=== PATIENT | male | born 1955 | race Caucasian/White ===

== ENCOUNTER → 2017-03-09 | Outpatient (CLI) | payer OTHER | LOC: FIMAGING 08:52 | PROVIDERS: ATTEND Internal Medicine Cardiovascular Disease | DX: I82.432 Acute embolism and thrombosis of left popliteal vein (principal); I82.4Z2 Acute embolism and thrombosis of unspecified deep veins of left distal lower extremity ==

== ENCOUNTER 2017-08-06 16:36 | Inpatient (IN) | payer OTHER ==
[2017-08-06] MEDS ORDERED: NS 1,000 ML IV ONE ×2 (17:06→17:27)
--- NOTE | 2017-08-06 17:06 | EDPHY ---
H & P Stated Complaint: fever, body aches, cough HPI/ROS: HPI CHIEF COMPLAINT: Fever, cough, sinus congestion, muscle cramps HISTORY OF PRESENT ILLNESS: This patient is a 62-year-old male, he has multiple myeloma undergoing treatment by Dr. Shelton, he presents emergency room with fever 102.8 T-max at home on Sunday. He states on Sunday started feeling bad. Fatigued. Wanted to sleep. Muscle aches and joint pain. Endorses sinus congestion and cough that is nonproductive. He denies chest pain , significant shortness of breath or abdominal pain. His main complaint is muscle aches and joint pain generalized fatigue. Upon arrival to the emergency room is noted to be febrile. Appears to be dehydrated. Patient additionally reports chills rigors over the weekend. Past Medical History: Multiple myeloma, community-acquired pneumonia, atrial flutter, Xarelto, C diff Past Surgical History: No recent surgery, remote history of bilateral knee replacement Social History: Denies daily use drugs alcohol tobacco products. Family History: Noncontributory ROS REVIEW OF SYSTEMS: A comprehensive 10 point review of systems is otherwise negative aside from elements mentioned in the history of present illness. Exam Constitutional appears nontoxic, triage nursing summary reviewed, vital signs reviewed, awake/alert. Eyes normal conjunctivae and sclera, EOMI, PERRLA. HENT normal inspection, atraumatic, dry mucous membranes, no epistaxis, neck supple/ no meningismus, no raccoon eyes. Respiratory clear to auscultation bilaterally, normal breath sounds, no respiratory distress, no wheezing. Cardiovascular rate normal, regular rhythm, no murmur, no edema, distal pulses normal. Gastrointestinal soft, non-tender, no rebound, no guarding, normal bowel sounds, no distension, no pulsatile mass. Genitourinary no CVA tenderness. Musculoskeletal no midline vertebral tenderness, full range of motion, no calf swelling, no tenderness of extremities, no meningismus, good pulses, neurovascularly intact. Skin pink, warm, & dry, no rash, skin atraumatic. Neurologic awake, alert and oriented x 3, AAOx3, moves all 4 extremities equally, motor intact, sensory intact, CN II-XII intact, normal cerebellar, normal vision, normal speech. Psychiatric normal mood/affect. Heme/Lymph/Immune no lymphadenopathy. Differential Diagnosis: Includes but is not limited to in a particular order bacteremia, sepsis, UTI, pneumonia, viral syndrome, influenza, sinusitis Medical Decision Making: Plan for this patient IV establishment, full monitor, blood cultures, lactic acid, IV fluid bolus, rule out sepsis bacteremia. Chest x-ray for pneumonia. Re-evaluation: ED x-ray chest two view: This shows a left lower lobe consolidation. Concerning for pneumonia. 1756: This patient has history of multiple myeloma undergoing treatment. He is immunosuppressed. Presents with a fever, muscle aches, joint pain generalized weakness. His workup shows he has a left lower lobe pneumonia. Additionally he is hypokalemic. Will be admitted to the hospitalist service for fever pneumonia sepsis hypokalemia. 1758: Broad-spectrum antibiotics been given. The IV vancomycin IV Zosyn. Reason for these antibiotics pneumonia in an immunosuppressed patient chemotherapy. 1813: Spoke with Dr. Mayorga: He agrees to admit this patient. Reason for admission fever, pneumonia, sepsis, immunosuppressed. Source: Patient - Personal History Current Tetanus/Diphtheria Vaccine: Unsure Current Tetanus Diphtheria and Acellular Pertussis (TDAP): Unsure - Medical/Surgical History Hx Asthma: No Hx Chronic Respiratory Disease: No Hx Diabetes: No Hx Cardiac Disease: Yes Hx Renal Disease: Yes Hx Cirrhosis: No Hx Alcoholism: No Hx HIV/AIDS: No Hx Splenectomy or Spleen Trauma: No Other PMH: BILAT KNEE REPLACEMENT, HTN, GERD, PERIPHERAL VASCULAR DISEASE, walking pneumonia. 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 multiple myeloma, aflutter/afib w/ CV 02/2015, kidney stone, chronic back pain, FERNANDO - Social History Smoking Status: Never smoked Constitutional: Initial Vital Signs Temperature (C) 39.2 C H 08/06/17 16:55 Heart Rate 82 08/06/17 16:55 Respiratory Rate 20 08/06/17 16:55 Blood Pressure 139/80 H 08/06/17 16:55 O2 Sat (%) 92 08/06/17 16:55 O2 Delivery Mode Room Air O2 (L/minute) 2 Allergies/Adverse Reactions: No Known Allergies Allergy (Verified 02/14/15 09:51) Home Medications: Medication Instructions Recorded Potassium Cl [Klor-Con 20 meq (*)] 20 meq PO BID 05/19/16 Albuterol [Ventolin Hfa Inhaler] 2 puffs IH QID PRN #1 mdi 09/22/16 levOFLOXACIN [Levaquin] 500 mg PO DAILY #10 tab 09/22/16 Acyclovir 08/06/17 Revlimid 08/06/17 Xarelto 08/06/17 Medical Decision Making - Diagnostics Imaging Results: Imaging Impressions Chest X-Ray 08/06/17 17:07 Impression: Suspect left basilar pneumonia. - Data Points Laboratory Results: Laboratory Results 08/06/17 17:18 08/06/17 17:18 08/06/17 08/06/17 08/06/17 17:18 17:18 17:18 WBC 7.48 10^3/uL 10^3/uL (3.80-9.50) RBC 4.47 10^6/uL 10^6/uL (4.40-6.38) Hgb 14.2 g/dL g/dL (13.7-17.5) Hct 41.6 % % (40.0-51.0) MCV 93.1 fL fL (81.5-99.8) MCH 31.8 pg pg (27.9-34.1) MCHC 34.1 g/dL g/dL (32.4-36.7) RDW 14.7 % % (11.5-15.2) Plt Count 142 10^3/uL L 10^3/uL (150-400) MPV 9.5 fL fL (8.7-11.7) Neut % (Auto) 86.3 % H % (39.3-74.2) Lymph % (Auto) 8.0 % L % (15.0-45.0) [place] % (Auto) 4.0 % L % (4.5-13.0) Eos % (Auto) 0.5 % L % (0.6-7.6) Baso % (Auto) 0.4 % % (0.3-1.7) Nucleat RBC Rel Count 0.0 % % (0.0-0.2) Absolute Neuts (auto) 6.45 10^3/uL 10^3/uL (1.70-6.50) Absolute Lymphs (auto) 0.60 10^3/uL L 10^3/uL (1.00-3.00) Absolute Monos (auto) 0.30 10^3/uL 10^3/uL (0.30-0.80) Absolute Eos (auto) 0.04 10^3/uL 10^3/uL (0.03-0.40) Absolute Basos (auto) 0.03 10^3/uL 10^3/uL (0.02-0.10) Absolute Nucleated RBC 0.00 10^3/uL 10^3/uL (0-0.01) Immature Gran % 0.8 % % (0.0-1.1) Immature Gran # 0.06 10^3/uL 10^3/uL (0.00-0.10) PT 16.2 SEC H SEC (12.0-15.0) INR 1.30 H (0.83-1.16) APTT 30.2 SEC SEC (23.0-38.0) VBG Lactic Acid Sodium 137 mEq/L mEq/L (134-144) Potassium 2.8 mEq/L L mEq/L (3.5-5.2) Chloride 105 mEq/L mEq/L (97-110) Carbon Dioxide 20 mEq/l L mEq/l (22-31) Anion Gap 12 mEq/L mEq/L (8-16) BUN 14 mg/dL mg/dL (7-23) Creatinine 1.1 mg/dL mg/dL (0.7-1.3) Estimated GFR > 60 Glucose 91 mg/dL mg/dL (70-100) Calcium 9.7 mg/dL mg/dL (8.5-10.4) Total Bilirubin 1.9 mg/dL H mg/dL (0.1-1.4) Conjugated Bilirubin 0.4 mg/dL mg/dL (0.0-0.5) Unconjugated Bilirubin 1.5 mg/dL H mg/dL (0.0-1.1) AST 26 IU/L IU/L (17-59) ALT 40 IU/L IU/L (21-72) Alkaline Phosphatase 60 IU/L IU/L (38-126) Total Protein 6.9 g/dL g/dL (6.3-8.2) Albumin 3.9 g/dL g/dL (3.5-5.0) Influenza A & B (PCR) 08/06/17 08/06/17 17:18 17:00 WBC RBC Hgb Hct MCV MCH MCHC RDW Plt Count MPV Neut % (Auto) Lymph % (Auto) [place] % (Auto) Eos % (Auto) Baso % (Auto) Nucleat RBC Rel Count Absolute Neuts (auto) Absolute Lymphs (auto) Absolute Monos (auto) Absolute Eos (auto) Absolute Basos (auto) Absolute Nucleated RBC Immature Gran % Immature Gran # PT INR APTT VBG Lactic Acid 1.4 mmol/L mmol/L (0.7-2.1) Sodium Potassium Chloride Carbon Dioxide Anion Gap BUN Creatinine Estimated GFR Glucose Calcium Total Bilirubin Conjugated Bilirubin Unconjugated Bilirubin AST ALT Alkaline Phosphatase Total Protein Albumin Influenza A & B (PCR) Pending Medications Given: Discontinued Medications Acetaminophen (Tylenol) 1,000 mg PO EDNOW ONE Stop: 08/06/17 17:14 Last Admin: 08/06/17 17:25 Dose: 1,000 mg Sodium Chloride (Ns) 1,000 mls @ 0 mls/hr IV EDNOW ONE; Wide Open PRN Reason: Protocol Stop: 08/06/17 17:07 Last Admin: 08/06/17 17:25 Dose: 1,000 mls Sodium Chloride (Ns) 1,000 mls @ 0 mls/hr IV ONCE ONE PRN Reason: Wide Open Stop: 08/06/17 17:28 Last Admin: 08/06/17 17:45 Dose: 1,000 mls Departure - Departure Disposition: [facility] Inpatient Acute Clinical Impression: Hypokalemia Pneumonia Qualifiers: Pneumonia type: due to unspecified organism Laterality: left Lung location: lower lobe of lung Qualified Code(s): J18.1 - Lobar pneumonia, unspecified organism Fever Qualifiers: Fever type: unspecified Qualified Code(s): R50.9 - Fever, unspecified Condition: Fair Referrals: Eran Shelton MD [Primary Care Provider] - As per Instructions
[2017-08-06] MEDS ORDERED: ACETAMINOPHEN 500 MG TAB PO ONE (17:13)
[2017-08-06 17:42] LABS: % IMMATURE GRANULYOCYTES 0.8 % (0.0-1.1); ABSOLUTE IMMATURE GRANULOCYTES 0.06 10^3/uL (0.00-0.10); ADD DIFF? NO; ADD MORPH? NO; ADD SCAN? NO; ATYPICAL LYMPHOCYTE FLAG 60 (0-99); FRAGMENT RBC FLAG 0 (0-99); HEMATOCRIT 41.6 % (40.0-51.0); HEMOGLOBIN 14.2 g/dL (13.7-17.5); LEFT SHIFT FLG 10 (0-99); LIPEMIA HEMOLYSIS FLAG 90 (0-99); MEAN CELL HEMOGLOBIN 31.8 pg (27.9-34.1); MEAN CELL HEMOGLOBIN CONCENTR. 34.1 g/dL (32.4-36.7); MEAN CELL VOLUME 93.1 fL (81.5-99.8); MEAN PLATELET VOLUME 9.5 fL (8.7-11.7); PLATELET CLUMPS FLAG 0 (0-99); PLATELET COUNT 142 10^3/uL (150-400); RED BLOOD CELL COUNT 4.47 10^6/uL (4.40-6.38); RED CELL DISTRIBUTION WIDTH 14.7 % (11.5-15.2)
[2017-08-06 17:44] LABS: ALANINE AMINOTRANSFERASE 40 IU/L (21-72); ALBUMIN 3.9 g/dL (3.5-5.0); ALKALINE PHOSPHATASE 60 IU/L (38-126); ANION GAP 12 mEq/L (8-16); ASPARTATE AMINOTRANSFERASE 26 IU/L (17-59); BILIRUBIN,TOTAL 1.9 mg/dL (0.1-1.4); BILIRUBIN-CONJUGATED 0.4 mg/dL (0.0-0.5); BILIRUBIN-UNCONJUGATED 1.5 mg/dL (0.0-1.1); CALCIUM 9.7 mg/dL (8.5-10.4); CARBON DIOXIDE 20 mEq/l (22-31); CHLORIDE 105 mEq/L (97-110); CREATININE 1.1 mg/dL (0.7-1.3); GLOMERULAR FILTRATION RATE > 60; GLUCOSE 91 mg/dL (70-100); POTASSIUM 2.8 mEq/L (3.5-5.2); SODIUM 137 mEq/L (134-144); TOTAL PROTEIN 6.9 g/dL (6.3-8.2)
[2017-08-06 17:50] LABS: INR 1.3 (0.83-1.16); PROTIME(PATIENT) 16.2 SEC (12.0-15.0)
[2017-08-06 17:51] LABS: APTT 30.2 SEC (23.0-38.0)
[2017-08-06] MEDS ORDERED: POTASSIUM Cl (KCl) 100 ML IV ONE (17:56)
[2017-08-06] MEDS ORDERED: VANCOMYCIN HCL/NORMAL SALINE 250 ML IV ONE (17:56)
[2017-08-06] MEDS ORDERED: PIPERACILLIN/TAZO 4.5 GM/DEX 100 ML IV ONE (17:56)
[2017-08-06] MEDS ORDERED: ACETAMINOPHEN 325 MG TAB PO PRN (18:16)
[2017-08-06] MEDS ORDERED: ONDANSETRON 4 MG/2 ML VIAL IVP PRN (18:16)
[2017-08-06] MEDS ORDERED: ONDANSETRON DISINTEGRATING 4 MG TAB PO PRN (18:16)
[2017-08-06] MEDS ORDERED: MAGNESIUM SULF 1 GM/DEXTROSE 100 ML IV ONE (19:22)
[2017-08-06] MEDS ORDERED: POTASSIUM CL 20 MEQ TAB PO ONE (19:22)
[2017-08-06] MEDS ORDERED: ALBUTEROL 200 PUFFS/18 GM MDI IH PRN (19:40)
[2017-08-06] MEDS ORDERED: guaiFENesin/CODEINE PHOS 10 ML UDCUP PO PRN (19:40)
--- NOTE | 2017-08-06 19:44 | PDGENHP ---
History and Physical - Chief Complaint Acute fever - History of Present Illness Primary care provider: Dr. Stephen Duncan Primary oncologist: Dr. Eran Shelton Primary slab grinder: Dr. Chuyita Traore Primary ceiling insulation blower: Dr. Guillaume Peralta HPI: 62-year-old male presenting with acute fever characterized as a temperature of a 102.8 degrees with associated rigors, myalgias, generalized weakness, generalized fatigue. Onset of symptoms 3 days prior, duration has been persistent worsening thereafter. He has also had a nonproductive cough which was most severe yesterday. He alleviated the fever with Tylenol at home, but then it recurred. He has been adherent to all of his home medications. He otherwise denies any diarrhea, nausea, dysuria. He has not recently been taking any antibiotics. He does attempt to remain physically active but has noted significant fatigue with exercise. History Information - Allergies/Home Medication List Allergies/Adverse Reactions: No Known Allergies Allergy (Verified 02/14/15 09:51) Home Medications: Potassium Cl [Klor-Con 20 meq (*)] 20 meq PO BID 05/19/16 [Last Taken 05/19/16] Acyclovir [Zovirax 400 mg (*)] 400 mg PO BID 08/06/17 [Last Taken 08/05/17 22:00 ] Midodrine HCl 2.5 mg PO TID 08/06/17 [Last Taken 08/06/17 09:00] Revlimid 08/06/17 [Last Taken Unknown] Rivaroxaban [Xarelto] 20 mg PO HS 08/06/17 [Last Taken 08/05/17 22:00] I have personally reviewed and updated: family history, medical history, social history, surgical history - Past Medical History CVA, DVT (March of 2017, right popliteal, tibial, peroneal, left popliteal) Additional medical history: Multiple Myeloma diagnosed 02/17 w/ IgG [place] disease, chronically immunosuppressed on Revlamid. Atrial flutter on Xarelto. Chronic kidney disease stage 3. Gastrointestinal bleed. Chronic pain with continuous opiate dependency. Gastroesophageal reflux disease. Obstructive sleep apnea on CPAP. Hypertension. History of C diff colitis - Surgical History Additional surgical history: Bilateral knee surgery. Thyroid goiter surgery - Family History Additional family history: No recent sick family contacts, father with myocardial infarction in his 70s, mother with breast cancer - Social History Smoking Status: Never smoked Alcohol Use: None Drug Use: None Additional social history: Right stationary bike 3 times weekly Review of Systems Review of Systems: ROS: 10pt was reviewed & negative except for what was stated in HPI & below Constitutional: Reports: chills, fever, malaise, weakness Respiratory: Reports: cough Physical Exam Physical Exam: Temp Pulse Resp BP Pulse Ox 38.6 C H 79 18 111/60 96 08/06/17 18:14 08/06/17 18:14 08/06/17 18:14 08/06/17 18:16 08/06/17 18:14 Constitutional: no apparent distress, not in pain, chronically ill appearing, obese, uncomfortable Eyes: PERRL, EOMI, scleral injection Ears, Nose, Mouth, Throat: moist mucous membranes, hearing normal, ears appear normal, no oral mucosal ulcers Cardiovascular: regular rate and rhythym, systolic murmur (1/6 at the right sternal border), No tachycardia, No edema Respiratory: other (Distant breath sounds), No expiratory wheeze, No inspiratory crackles, No bronchial breath sounds, No respiratory distress Gastrointestinal: normoactive bowel sounds, soft, non-tender abdomen, no palpable masses, distension (Obese), No guarding Skin: warm, normal color, no rashes or abrasions, no fluctuance, no induration, No mottled Neurologic: AAOx3, sensation intact bilaterally, No weakness (Motor strength 5/ 5 bilaterally), No facial droop Psychiatric: interacting appropriately, not anxious, not encephalopathic, thought process linear Lab Data & Imaging Review 08/06/17 17:18 08/06/17 17:18 WBC 7.48 10^3/uL (3.80-9.50) 08/06/17 17:18 RBC 4.47 10^6/uL (4.40-6.38) 08/06/17 17:18 Hgb 14.2 g/dL (13.7-17.5) 08/06/17 17:18 Hct 41.6 % (40.0-51.0) 08/06/17 17:18 MCV 93.1 fL (81.5-99.8) 08/06/17 17:18 MCH 31.8 pg (27.9-34.1) 08/06/17 17:18 MCHC 34.1 g/dL (32.4-36.7) 08/06/17 17:18 RDW 14.7 % (11.5-15.2) 08/06/17 17:18 Plt Count 142 10^3/uL (150-400) L 08/06/17 17:18 MPV 9.5 fL (8.7-11.7) 08/06/17 17:18 Neut % (Auto) 86.3 % (39.3-74.2) H 08/06/17 17:18 Lymph % (Auto) 8.0 % (15.0-45.0) L 08/06/17 17:18 [place] % (Auto) 4.0 % (4.5-13.0) L 08/06/17 17:18 Eos % (Auto) 0.5 % (0.6-7.6) L 08/06/17 17:18 Baso % (Auto) 0.4 % (0.3-1.7) 08/06/17 17:18 Nucleat RBC Rel Count 0.0 % (0.0-0.2) 08/06/17 17:18 Absolute Neuts (auto) 6.45 10^3/uL (1.70-6.50) 08/06/17 17:18 Absolute Lymphs (auto) 0.60 10^3/uL (1.00-3.00) L 08/06/17 17:18 Absolute Monos (auto) 0.30 10^3/uL (0.30-0.80) 08/06/17 17:18 Absolute Eos (auto) 0.04 10^3/uL (0.03-0.40) 08/06/17 17:18 Absolute Basos (auto) 0.03 10^3/uL (0.02-0.10) 08/06/17 17:18 Absolute Nucleated RBC 0.00 10^3/uL (0-0.01) 08/06/17 17:18 Immature Gran % 0.8 % (0.0-1.1) 08/06/17 17:18 Immature Gran # 0.06 10^3/uL (0.00-0.10) 08/06/17 17:18 PT 16.2 SEC (12.0-15.0) H 08/06/17 17:18 INR 1.30 (0.83-1.16) H 08/06/17 17:18 APTT 30.2 SEC (23.0-38.0) 08/06/17 17:18 VBG Lactic Acid 1.4 mmol/L (0.7-2.1) 08/06/17 17:18 Sodium 137 mEq/L (134-144) 08/06/17 17:18 Potassium 2.8 mEq/L (3.5-5.2) L 08/06/17 17:18 Chloride 105 mEq/L (97-110) 08/06/17 17:18 Carbon Dioxide 20 mEq/l (22-31) L 08/06/17 17:18 Anion Gap 12 mEq/L (8-16) 08/06/17 17:18 BUN 14 mg/dL (7-23) 08/06/17 17:18 Creatinine 1.1 mg/dL (0.7-1.3) 08/06/17 17:18 Estimated GFR > 60 08/06/17 17:18 Glucose 91 mg/dL (70-100) 08/06/17 17:18 Calcium 9.7 mg/dL (8.5-10.4) 08/06/17 17:18 Total Bilirubin 1.9 mg/dL (0.1-1.4) H 08/06/17 17:18 Conjugated Bilirubin 0.4 mg/dL (0.0-0.5) 08/06/17 17:18 Unconjugated Bilirubin 1.5 mg/dL (0.0-1.1) H 08/06/17 17:18 AST 26 IU/L (17-59) 08/06/17 17:18 ALT 40 IU/L (21-72) 08/06/17 17:18 Alkaline Phosphatase 60 IU/L (38-126) 08/06/17 17:18 Total Protein 6.9 g/dL (6.3-8.2) 08/06/17 17:18 Albumin 3.9 g/dL (3.5-5.0) 08/06/17 17:18 Influenza A & B (PCR) POSITIVE FOR FLU A (NEGATIVE) 08/06/17 17:00 Visualized and Interpreted Chest x-ray results: Yes Chest X-Ray results: other (Possible left lower lobe infiltrate) Assessment & Plan Assessment: 62-year-old male presenting with generalized weakness and fever in the setting of possible viral pneumonia, hypokalemia Plan: 1. Suspected viral pneumonia. Evidenced by possible left lower lobe infiltrate on chest x-ray, positive influenza swab PCR, infectious symptoms and cough -acute, new problem this provider, further workup indicated with CT without contrast evaluate for lobar pneumonia versus more diffuse process more suggestive of influenza -reviewed outside records including 05/21/[address] Alberto Guaman, characterizing patient's most recent hospitalization for pneumonia secondary to parainfluenza, treated on suppressive oral vancomycin given his history for C diff and concomitant use of antibiotics -treat supportively with guaifenesin and codeine, Mucinex, albuterol as needed, Tylenol -1st dose of Tamiflu tonight, continue 75 mg twice daily -discussed with Dr. Zoltan Mendiola, he reports to me that the patient has received vancomycin and Zosyn given his immunocompromised status from chronic use of Revlimid, will discontinue the Vanco and Zosyn at this time given that this process is much more likely mediated by influenza the patient has a history of C diff colitis 2. Hypokalemia. Acute, unclear whether this is secondary to poor oral intake in the setting of infection, the patient received 10 mEq of potassium in the emergency department, will continue with normal saline and 40 mEq as well as an additional oral 40 mEq now repeating serum potassium level in a.m. -give 1 g of IV magnesium, repeat level in a.m. 3. Atrial flutter. Chronic, continue on Xarelto and other home medications 4. Multiple myeloma. Chronic, continue on Revlimid once reconciled, chronically immunosuppressed 5. Chronic kidney disease stage 3. Creatinine 1.1, continue to monitor well as potassium level 6. Deep venous thrombosis. Present on admission, ultrasound from 03/09/2017 demonstrates bilateral distal lower extremity clots, currently on Xarelto Diet. Regular Prophylaxis. Risk patient, continue on Xarelto Code. Full Disposition. Anticipated discharge uncertain this time, anticipated length stay is greater than 48 hours warranting inpatient admission status for reasonable medical necessity including suspected viral pneumonia with high risk comorbid multiple myeloma and chronic immunosuppression.
[2017-08-06] MEDS: POTASSIUM Cl (KCl) 40 MEQ in NS 1,000 ML IV SCH (19:52)
[2017-08-06] MEDS: guaiFENesin 600 MG TAB.ER PO SCH (19:57)
[2017-08-06] MEDS ORDERED: RIVAROXABAN 20 MG TAB PO SCH (22:20)
[2017-08-06] MEDS ORDERED: OSELTAMIVIR PHOSPHATE 75 MG CAP PO ONE (23:15)
[2017-08-06] MEDS: ACYCLOVIR 400 MG TAB PO SCH (23:19)
[2017-08-06] MEDS: MIDODRINE HCL 5 MG TAB PO SCH (23:20)
[2017-08-07] MEDS: LOPERAMIDE HCL 2 MG CAP PO PRN ×2 (00:29→00:30)
[2017-08-07] MEDS ORDERED: PIPERACILLIN/TAZO 4.5 GM/DEX 100 ML IV SCH (00:30)
[2017-08-07 05:26] LABS: % IMMATURE GRANULYOCYTES 0.8 % (0.0-1.1); ABSOLUTE IMMATURE GRANULOCYTES 0.05 10^3/uL (0.00-0.10); ADD DIFF? NO; ADD MORPH? NO; ADD SCAN? NO; ATYPICAL LYMPHOCYTE FLAG 0 (0-99); FRAGMENT RBC FLAG 0 (0-99); HEMATOCRIT 37.8 % (40.0-51.0); HEMOGLOBIN 12.8 g/dL (13.7-17.5); LEFT SHIFT FLG 20 (0-99); LIPEMIA HEMOLYSIS FLAG 90 (0-99); MEAN CELL HEMOGLOBIN CONCENTR. 33.9 g/dL (32.4-36.7); MEAN CELL VOLUME 94.5 fL (81.5-99.8); PLATELET CLUMPS FLAG 0 (0-99); PLATELET COUNT 114 10^3/uL (150-400); RED CELL DISTRIBUTION WIDTH 14.7 % (11.5-15.2)
[2017-08-07 05:41] LABS: ALANINE AMINOTRANSFERASE 41 IU/L (21-72); ALKALINE PHOSPHATASE 47 IU/L (38-126); ANION GAP 10 mEq/L (8-16); ASPARTATE AMINOTRANSFERASE 27 IU/L (17-59); BILIRUBIN,TOTAL 1.4 mg/dL (0.1-1.4); CALCIUM 8.6 mg/dL (8.5-10.4); CARBON DIOXIDE 19 mEq/l (22-31); CHLORIDE 112 mEq/L (97-110); CREATININE 1.1 mg/dL (0.7-1.3); GLOMERULAR FILTRATION RATE > 60; GLUCOSE 82 mg/dL (70-100); MAGNESIUM 1.7 mg/dL (1.6-2.3); POTASSIUM 3.1 mEq/L (3.5-5.2); SODIUM 141 mEq/L (134-144); TOTAL PROTEIN 5.8 g/dL (6.3-8.2)
[2017-08-07] MEDS ORDERED: VANCOMYCIN 1.5 GM in D5W 250 ML IV SCH (06:00)
[2017-08-07] MEDS ORDERED: OSELTAMIVIR PHOSPHATE 75 MG CAP PO SCH (07:00)
[2017-08-07] MEDS: POTASSIUM Cl (KCl) 40 MEQ in NS 1,000 ML IV SCH (07:09)
[2017-08-07] MEDS: MIDODRINE HCL 5 MG TAB PO SCH ×2 (07:58→12:08)
[2017-08-07] MEDS: ACYCLOVIR 400 MG TAB PO SCH (09:51)
[2017-08-07] MEDS: guaiFENesin 600 MG TAB.ER PO SCH (09:51)
--- NOTE | 2017-08-07 11:51 | ASMTCASEMG ---
Living Arrangements What is your living Answers: With Spouse arrangement? Who do you live with? Type Of Residence What kind of residence do Answers: House you live in? Discharge Plan Comments Coordination Status Comments Notes: Chart reviewed, pt is a 62 y/o man admitted w/ fenver and pneumonia. Pt has a supportive ex that has been in to visit w/ him. Pt will most likely d/c independent when he is medically stable. CM available for changes. Date Signed: 08/07/2017 11:51 AM Electronically Signed By:JOI Hayes
[2017-08-07 12:51] VITALS: BP 131/77; PULSE 63; RESP 16; TEMP 98; O2SAT 95
--- NOTE | 2017-08-07 13:13 | GDS ---
[f rep st] DISCHARGE SUMMARY DISCHARGE DIAGNOSES: 1. Influenza A. 2. Hypokalemia. 3. History of atrial flutter. 4. History of multiple myeloma. 5. Chronic kidney disease, stage 3. 6. Deep vein thrombosis, on Xarelto. 7. A suspected viral pneumonia. HOSPITAL COURSE AND STAY: By problem: Influenza A: The patient presented to the hospital on 08/06/2017 with fever as well as rigors, myalg ias, generalized weakness, and fatigue. Subsequently, an influenza A and B by PCR was positive for linus [place]. He was started on Tamiflu. On hospital day #1, the patient states he feels much better. He denies any respiratory complaints. He did initially receive a dose of Zosyn and vancomycin in [facility] emergency department, which have been stopped. On day of discharge, I offered the patient further care in the hospital to ensure he is improving dg giovanni discharge home. The patient was fairly adamant about being discharged. He tells me he feels fin e and would like to be treated as an outpatient with Tamiflu. He understands that he is at risk for developing a secondary bacterial pneumonia and will seek followup if he develops persistent fevers or worsening respiratory symptoms. PHYSICAL EXAMINATION: VITAL SIGNS: On day of discharge, blood pressure 108/62, pulse of 67, respira tory rate 20, O2 sat 96% on 4 L, temperature afebrile. GENERAL: No acute distress. LUNGS: Clear. No wheezes, rales, or rhonchi. ABDOMEN: Soft. EXTREMITIES: No edema. PERTINENT LABORATORY AND STUDIES: Chest CT done on day of discharge, showed scattered tree-in-bud no dules, which are likely inflammatory versus infectious. DISCHARGE MEDICATIONS: Please refer to discharge Medication Reconciliation in [facility] for details a s well as a preliminary list. New medications on hospital discharge, Tamiflu 75 mg p.o. b.i.d. to complete 5 days of treatment. DISCHARGE INSTRUCTIONS: The patient will be discharged home. Once again, he was urged to seek medic al attention if his fevers persist or if he develops any worsening signs of pneumonia. /[id number]/MODL
--- NOTE | 2017-08-07 17:00 | ASDISCHSUM ---
Discharge Information Plan Status:Home with No Needs Medically Cleared to Leave:08/07/2017 Discharge Date:08/07/2017 01:40 PM CM D/C Disposition: ADT D/C Disposition:Home, Routine, Self-Care Projected Discharge Date:08/07/2017 12:00 AM Transportation at D/C: Discharge Delay Reason: Follow-Up Date:08/07/2017 12:00 AM Discharge Slot: Final Diagnosis: Placement Information Patient Contact Information Contact Name:SHAWNAVASILEFARIDEH Relationship: Address:[address] Home Phone: City:[place] Alternate Phone: [facility]/Zip Code:[place] [address] Email: Financial Information Financial Class:[facility] Primary Plan Desc:[employer] OPEN ACCESS Primary Plan Number:[id number] Secondary Plan Desc: Secondary Plan Number: Assessment Information [facility] Initial CM Assessment Living Arrangements What is your living Answers: With Spouse arrangement? Who do you live with? Type Of Residence What kind of residence do Answers: House you live in? Discharge Plan Comments Coordination Status Comments Notes: Chart reviewed, pt is a 62 y/o man admitted w/ fenver and pneumonia. Pt has a supportive ex that has been in to visit w/ him. Pt will most likely d/c independent when he is medically stable. CM available for changes. Date Signed: 08/07/2017 11:51 AM Electronically Signed By:JOI Hayes Intervention Information
[2017-08-07] MEDS ORDERED: POTASSIUM CL 20 MEQ TAB PO SCH (21:00)
== END 2017-08-07 13:40 | disposition home or self-care (01) | DRG 194 ==
LOC: F3E 18:50
PROVIDERS: ADMIT Internal Medicine; ATTEND Family Medicine
DX: J10.01 Influenza due to other identified influenza virus with the same other identified influenza virus pneumonia (principal); E87.6 Hypokalemia; I48.92 Unspecified atrial flutter; C90.00 Multiple myeloma not having achieved remission; Z94.84 Stem cells transplant status; Z79.899 Other long term (current) drug therapy; N18.3 Chronic kidney disease, stage 3 (moderate); I12.9 Hypertensive chronic kidney disease with stage 1 through stage 4 chronic kidney disease, or unspecified chronic kidney disease; G47.33 Obstructive sleep apnea (adult) (pediatric); K21.9 Gastro-esophageal reflux disease without esophagitis; Z86.718 Personal history of other venous thrombosis and embolism; Z86.73 Personal history of transient ischemic attack (TIA), and cerebral infarction without residual deficits; Z79.01 Long term (current) use of anticoagulants; Z96.653 Presence of artificial knee joint, bilateral
CPT/HCPCS: 97161-GP; J2543; J3370; J3475

== ENCOUNTER → 2018-02-08 | Outpatient (CLI) | payer OTHER | LOC: FIMAGING 14:09 | PROVIDERS: ATTEND Internal Medicine | DX: L72.3 Sebaceous cyst (principal) ==

== ENCOUNTER 2019-01-23 17:01 | Emergency (ER) | payer OTHER ==
--- NOTE | 2019-01-23 17:32 | EDPHY ---
H & P Stated Complaint: cough, fever, fatigue Time Seen by Provider: 01/23/19 17:32 HPI/ROS: HPI CHIEF COMPLAINT: Fatigue, worsening cough, fever 102.7 T-max at home. HISTORY OF PRESENT ILLNESS: This patient is 64-year-old male, he has a history of AFib on Xarelto, history of multiple myeloma on Revlimid, presents emergency room stating for the past 2 weeks he has had worsening progressive 2 weeks of symptoms worsening cough, shortness of breath, and today developed a fever at home of 102.7. He complains of increasing generalized weakness and fatigue. Denies chest pain. Does complain of shortness of breath. Upon arrival it is noted his O2 sat was 87%. He denies hemoptysis. Denies pleuritic pain. Past Medical History: History of multiple myeloma, history of AFib on Xarelto, obesity, history of bone marrow transplant Past Surgical History: Denies recent surgical history Social History: Denies drugs alcohol tobacco. Family History: Noncontributory ROS REVIEW OF SYSTEMS: 10 Systems were reviewed and negative with the exception of the elements mentioned in the history of present illness. Exam Constitutional triage nursing summary reviewed, vital signs reviewed, awake/ alert. 87% room air sat. Eyes normal conjunctivae and sclera, EOMI, PERRLA. HENT normal inspection, atraumatic, moist mucus membranes, no epistaxis, neck supple/ no meningismus, no raccoon eyes. Respiratory bronchitic sounding cough on exam. Faint wheezing bilaterally. Cardiovascular rate normal, regular rhythm, no murmur, no edema, distal pulses normal. Gastrointestinal soft, non-tender, no rebound, no guarding, normal bowel sounds, no distension, no pulsatile mass. Genitourinary no CVA tenderness. Musculoskeletal no midline vertebral tenderness, full range of motion, no calf swelling, no tenderness of extremities, no meningismus, good pulses, neurovascularly intact. Skin pink, warm, & dry, no rash, skin atraumatic. Neurologic awake, alert and oriented x 3, AAOx3, moves all 4 extremities equally, motor intact, sensory intact, CN II-XII intact, normal cerebellar, normal vision, normal speech. Psychiatric normal mood/affect. Heme/Lymph/Immune no lymphadenopathy. Differential Diagnosis: Differential diagnosis includes but is not limited to: Sepsis, bacteremia, pneumonia, influenza, bronchitis, viral syndrome ACS, atypical chest pain, pneumothorax, pneumonia, pulmonary embolism, aortic dissection, congestive heart failure, tumor, musculoskeletal pain, esophageal pain, GERD, peptic ulcer disease, pancreatitis Medical Decision Making: Plan for this patient IV establishment IV fluid bolus , DuoNeb breathing treatment, check lactic acid, blood cultures, basic labs, EKG , chest x-ray re-evaluate Re-evaluation: EKG interpretation by me on record in [facility] system. Impression time of EKG 1802, sinus rhythm rate of 78, incomplete right bundle-branch block. There is slight ST depression seen in V1 V2 V3 without any signs of acute ischemia. Updated patient on pneumonia on chest x-ray. IV Rocephin IV Azithro have been ordered. Plan for hospital admission Patient agrees for admission. Hospitalist service consult Dr. Rojo agrees. 2156: Patient re-evaluated he continues do very well. However still has faint wheezing, mild tachypnea. Fever down with Tylenol, ice received IV fluids his lactic acid was initially elevated 2.9. 2nd lactic acid pending. Blood cultures pending. IV Rocephin given Plan for admission for acute febrile illness, tachycardia, dehydration, COPD exacerbation, hypoxia Source: Patient - Personal History Current Tetanus/Diphtheria Vaccine: Unsure Current Tetanus Diphtheria and Acellular Pertussis (TDAP): Unsure - Medical/Surgical History Hx Asthma: No Hx Chronic Respiratory Disease: No Hx Diabetes: No Hx Cardiac Disease: Yes Hx Renal Disease: Yes Hx Cirrhosis: No Hx Alcoholism: No Hx HIV/AIDS: No Hx Splenectomy or Spleen Trauma: No Other PMH: BILAT KNEE REPLACEMENT, HTN, GERD, PERIPHERAL VASCULAR DISEASE, walking pneumonia. 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 multiple myeloma, aflutter/afib w/ CV 02/2015, kidney stone, chronic back pain, FERNANDO - Social History Smoking Status: Never smoked Constitutional: Initial Vital Signs Temperature (C) 37.4 C 01/23/19 17:04 Heart Rate 79 01/23/19 17:04 Respiratory Rate 19 01/23/19 17:04 Blood Pressure 130/58 H 01/23/19 17:04 O2 Sat (%) 93 01/23/19 17:04 O2 Delivery Mode Room Air O2 (L/minute) 2 Allergies/Adverse Reactions: No Known Allergies Allergy (Verified 02/14/15 09:51) Home Medications: Medication Instructions Recorded Potassium Cl [Klor-Con 20 meq (*)] 20 meq PO HS 05/19/16 Revlimid 10 mg PO HS 08/06/17 Rivaroxaban [Xarelto] 20 mg PO HS 08/06/17 Acyclovir [Zovirax 400 mg (*)] 400 mg PO BID 01/23/19 Amoxicillin/Clavulanate Pot 875 mg PO BID #14 tab 01/24/19 [Augmentin 875 MG TAB (*)] Azithromycin 500 mg PO DAILY #5 tablet 01/24/19 Benzonatate [Tessalon Pearles] 200 mg PO TID PRN #60 cap 01/24/19 Medical Decision Making - Data Points Laboratory Results: Laboratory Results 01/23/19 17:40 01/23/19 17:40 Medications Given: Acetaminophen (Tylenol) 650 mg PO Q4HRS PRN PRN Reason: Pain, Mild/Fever, Can Take PO Stop: 07/22/19 20:55 Last Admin: 01/23/19 23:06 Dose: 650 mg Acyclovir (Acyclovir) 400 mg PO BID [facility] Stop: 02/22/19 22:44 Last Admin: 01/24/19 09:21 Dose: 400 mg Rivaroxaban (Xarelto) 20 mg PO [facility] Stop: 07/22/19 20:59 Last Admin: 01/23/19 22:44 Dose: 20 mg Discontinued Medications Albuterol/Ipratropium (Duoneb) 3 ml IH EDNOW ONE Stop: 01/23/19 17:39 Last Admin: 01/23/19 17:55 Dose: 3 ml Sodium Chloride (Ns) 1,000 mls @ 0 mls/hr IV EDNOW ONE; Wide Open PRN Reason: Protocol Stop: 01/23/19 17:38 Last Admin: 01/23/19 17:55 Dose: 1,000 mls Azithromycin 500 mg/ Sodium (Chloride) 255 mls @ 255 mls/hr IV EDNOW ONE PRN Reason: Protocol Stop: 01/23/19 19:31 Last Admin: 01/23/19 19:33 Dose: 255 mls Ceftriaxone Sodium/Dextrose (Rocephin 1 Gm (Premix)) 50 mls @ 100 mls/hr IV EDNOW ONE PRN Reason: Protocol Stop: 01/23/19 19:01 Last Admin: 01/23/19 18:52 Dose: 50 mls Sodium Chloride (Ns) 1,000 mls @ 100 mls/hr IV CONT [facility] Stop: 07/22/19 20:59 Last Admin: 01/23/19 23:10 Dose: 1,000 mls Loperamide HCl ( Imodium) 2 mg PO EDNOW ONE Stop: 01/23/19 20:47 Last Admin: 01/23/19 20:49 Dose: 2 mg Miscellaneous Medication (Revlimid) 10 mg PO HS [facility] Stop: 07/22/19 20:59 Last Admin: 01/23/19 22:45 Dose: 10 mg Point of Care Test Results: Chemistry 01/23/19 17:49 POC Troponin I 0.03 ng/mL ng/mL (0.00-0.08) Departure - Departure Disposition: [facility] Acute Clinical Impression: Hypoxia, COPD exacerbation Condition: Fair
[2019-01-23] MEDS ORDERED: NS 1,000 ML IV ONE (17:37)
[2019-01-23] MEDS ORDERED: IPRATROPIUM/ALBUTEROL 3 ML DEYVIAL IH ONE (17:38)
[2019-01-23 17:58] LABS: PLATELET COUNT 178 10^3/uL (150-400)
[2019-01-23] MEDS ORDERED: AZITHROMYCIN IV 500 MG in NS 250 ML IV ONE (18:32)
[2019-01-23] MEDS ORDERED: LOPERAMIDE HCL 2 MG CAP PO ONE (20:46)
[2019-01-23] MEDS ORDERED: ACETAMINOPHEN 325 MG TAB PO PRN (20:56)
[2019-01-23] MEDS ORDERED: ONDANSETRON 4 MG/2 ML VIAL IVP PRN (20:56)
[2019-01-23] MEDS ORDERED: ONDANSETRON DISINTEGRATING 4 MG TAB PO PRN (20:56)
[2019-01-23] MEDS ORDERED: oxyCODONE IR 5 MG TAB PO PRN (20:56)
[2019-01-23] MEDS ORDERED: NS 1,000 ML IV SCH (21:00)
[2019-01-23] MEDS ORDERED: REVLIMID 10 MG PO SCH (21:00)
[2019-01-23] MEDS ORDERED: RIVAROXABAN 20 MG TAB PO SCH (21:00)
[2019-01-23] MEDS ORDERED: BENZONATATE 100 MG CAP PO PRN (21:48)
--- NOTE | 2019-01-23 21:50 | PDGENHP ---
History and Physical - Chief Complaint fever, cough - History of Present Illness 64yo M with multiple myeloma on revlimid presents with 2 weeks of worsening productive cough and shortness of breath. Developed fever to 102 this morning to decided to come to the ED. Sputum has been greenish yellow. Thinks he got sick from his granddaughter. No recent antibiotics. Per his report, his myeloma has been stable. In the ED, a chest x-ray shows right middle and lower lobe opacities. He was also febrile to 38.7. Blood cultures were drawn and he was started on IV ceftriaxone and azithromycin. He is being admitted for further care. Case discussed with ED physician Zoltan Mendiola. History Information - Allergies/Home Medication List Allergies/Adverse Reactions: No Known Allergies Allergy (Verified 02/14/15 09:51) Home Medications: Potassium Cl [Klor-Con 20 meq (*)] 20 meq PO HS 05/19/16 [Last Taken 01/22/19] Revlimid 10 mg PO HS 08/06/17 [Last Taken 01/22/19] Rivaroxaban [Xarelto] 20 mg PO HS 08/06/17 [Last Taken 01/22/19] Acyclovir [Zovirax 400 mg (*)] 400 mg PO BID 01/23/19 [Last Taken 01/23/19] I have personally reviewed and updated: family history, medical history, social history, surgical history - Past Medical History CVA, DVT (March of 2017, right popliteal, tibial, peroneal, left popliteal) Additional medical history: [place] chain IgG multiple myeloma (diagnosed 02/2015) with stem cell transplant in 2016, atrial flutter s/p DCCV, DVT, CKD, GI bleed, GERD, chronic pain now off narcotics, FERNANDO no longer on CPAP, HTN, remote C diff colitis, CVA with no residual deficits, diastolic dysfunction, goiter - Surgical History Additional surgical history: knee surgery, thyroid surgery - Family History Positive for: non-pertinent - Social History Smoking Status: Never smoked Alcohol Use: Rarely Drug Use: None Additional social history: Lives with Review of Systems Review of Systems: ROS: 10pt was reviewed & negative except for what was stated in HPI & below Physical Exam Physical Exam: Temp Pulse Resp BP Pulse Ox 37.4 C 78 16 121/51 H 97 01/23/19 17:04 01/23/19 18:52 01/23/19 18:52 01/23/19 18:52 01/23/19 18:52 O2 (L/minute) 3 Constitutional: appears nourished, uncomfortable Eyes: PERRL, anicteric sclera Ears, Nose, Mouth, Throat: no oral mucosal ulcers, dry mucous membranes Cardiovascular: regular rate and rhythym, no murmur, rub, or gallop, No edema Respiratory: reduced air movement, respiratory distress, rhonchi, No expiratory wheeze Gastrointestinal: normoactive bowel sounds, soft, non-tender abdomen, no palpable masses Genitourinary: no bladder fullness, no bladder tenderness Skin: warm, normal color, no rashes or abrasions, no fluctuance, no induration, No mottled Musculoskeletal: full muscle strength Neurologic: AAOx3 Psychiatric: interacting appropriately Lab Data & Imaging Review 01/23/19 17:40 01/23/19 17:40 WBC 6.10 10^3/uL (3.80-9.50) 01/23/19 17:40 RBC 4.54 10^6/uL (4.40-6.38) 01/23/19 17:40 Hgb 14.0 g/dL (13.7-17.5) 01/23/19 17:40 Hct 43.9 % (40.0-51.0) 01/23/19 17:40 MCV 96.7 fL (81.5-99.8) 01/23/19 17:40 MCH 30.8 pg (27.9-34.1) 01/23/19 17:40 MCHC 31.9 g/dL (32.4-36.7) L 01/23/19 17:40 RDW 14.6 % (11.5-15.2) 01/23/19 17:40 Plt Count 178 10^3/uL (150-400) 01/23/19 17:40 MPV 9.1 fL (8.7-11.7) 01/23/19 17:40 Neut % (Auto) 70.8 % (39.3-74.2) 01/23/19 17:40 Lymph % (Auto) 14.6 % (15.0-45.0) L 01/23/19 17:40 [place] % (Auto) 12.5 % (4.5-13.0) 01/23/19 17:40 Eos % (Auto) 1.3 % (0.6-7.6) 01/23/19 17:40 Baso % (Auto) 0.3 % (0.3-1.7) 01/23/19 17:40 Nucleat RBC Rel Count 0.0 % (0.0-0.2) 01/23/19 17:40 Absolute Neuts (auto) 4.32 10^3/uL (1.70-6.50) 01/23/19 17:40 Absolute Lymphs (auto) 0.89 10^3/uL (1.00-3.00) L 01/23/19 17:40 Absolute Monos (auto) 0.76 10^3/uL (0.30-0.80) 01/23/19 17:40 Absolute Eos (auto) 0.08 10^3/uL (0.03-0.40) 01/23/19 17:40 Absolute Basos (auto) 0.02 10^3/uL (0.02-0.10) 01/23/19 17:40 Absolute Nucleated RBC 0.00 10^3/uL (0-0.01) 01/23/19 17:40 Immature Gran % 0.5 % (0.0-1.1) 01/23/19 17:40 Immature Gran # 0.03 10^3/uL (0.00-0.10) 01/23/19 17:40 VBG Lactic Acid 1.7 mmol/L (0.7-2.1) 01/23/19 17:40 Sodium 135 mEq/L (135-145) 01/23/19 17:40 Potassium 3.6 mEq/L (3.5-5.2) 01/23/19 17:40 Chloride 102 mEq/L (97-110) 01/23/19 17:40 Carbon Dioxide 24 mEq/l (22-31) 01/23/19 17:40 Anion Gap 9 mEq/L (6-14) 01/23/19 17:40 BUN 15 mg/dL (7-23) 01/23/19 17:40 Creatinine 1.0 mg/dL (0.7-1.3) 01/23/19 17:40 Estimated GFR > 60 01/23/19 17:40 Glucose 99 mg/dL (70-100) 01/23/19 17:40 Calcium 9.2 mg/dL (8.5-10.4) 01/23/19 17:40 POC Troponin I 0.03 ng/mL (0.00-0.08) 01/23/19 17:49 NT-Pro-B Natriuret Pep 454 pg/mL (0-125) H 01/23/19 17:40 Nasal Influenza A PCR NEGATIVE FOR FLU A (NEGATIVE) 01/23/19 18:00 Nasal Influenza B PCR NEGATIVE FOR FLU B (NEGATIVE) 01/23/19 18:00 Interpretation: CXR per HPI EKG additional interpertation: ECG: NSR, incomplete RBBB, normal axis, inferior q waves (old), no acute ischemia or injury (interp by me) Assessment & Plan Assessment: 64yo M with multiple myeloma on revlimid presents with 2 weeks of worsening productive cough and shortness of breath found to be hypoxemic with pneumonia. Plan: #Community acquired pneumonia: Involving RML and RLL. Continue ceftriaxone and azithromycin. Follow sputum and blood cultures #Acute hypoxemic respiratory failure: 2/2 above. Wean O2 as able. #Fever: Not meeting sepsis criteria. Monitor fever curve. #Multiple myeloma: Followed by Dr Shelton. S/p stem cell transplant in 2016. Continue revlimid and xarelto. #Chronic diastolic CHF: CXR looks a little wet. BNP not very elevated but he is obese. Will hold on additional fluids for now. #H/o DVT: Anticoagulation as above. Code: full Diet: regular Dispo: Admit under observation
[2019-01-23] MEDS: ACYCLOVIR 400 MG TAB PO SCH (22:44)
[2019-01-24 06:22] LABS: PLATELET COUNT 158 10^3/uL (150-400)
[2019-01-24] MEDS ORDERED: ENOXAPARIN 40 MG/0.4 ML SYR SC SCH (09:00)
[2019-01-24] MEDS: ACYCLOVIR 400 MG TAB PO SCH (09:21)
--- NOTE | 2019-01-24 10:03 | HOSPPROG ---
Hospitalist Progress Note Assessment/Plan: 64 yo M w MM here w CAP AHRF- improved cap: augmentin/azithro dispo: home warning signs given see dc summary Subjective: feels well. wishes to go home Objective: Vital Signs Temp Pulse Resp BP Pulse Ox 37.1 C 66 20 95/54 L 94 01/24/19 06:53 01/24/19 06:53 01/24/19 06:53 01/24/19 06:53 01/24/19 06:53 Laboratory Results 01/24/19 06:00 01/24/19 06:00 - Physical Exam Constitutional: no apparent distress, appears nourished Eyes: PERRL, anicteric sclera Ears, Nose, Mouth, Throat: moist mucous membranes, hearing normal Cardiovascular: regular rate and rhythym, no murmur, rub, or gallop Respiratory: other (crackles RUL, RLL) Gastrointestinal: normoactive bowel sounds, soft, non-tender abdomen Genitourinary: No myers in urethra Skin: warm, normal color Musculoskeletal: full muscle strength Neurologic: AAOx3 ICD10 Worksheet Patient Problems: Problems Problem Status Onset COPD exacerbation Acute Hypoxia Acute Pneumonia Acute Acute respiratory failure Acute C. difficile diarrhea Acute 04/05/16 Dehydration Acute Fever Acute Hypokalemia Acute Hypotension Acute Sepsis Acute
--- NOTE | 2019-01-24 10:52 | GDS ---
[f rep st] DISCHARGE SUMMARY DISCHARGE DIAGNOSES: 1. Community-acquired pneumonia. 2. History of multiple myeloma, deep venous thrombosis, stroke. Please see admission history and physical by Dr. Charli Rojo. The patient presented with product veronica cough. Chest x-ray showed right upper lobe and right lower lobe infiltrate. They were relativel y mild to not have sepsis. He had an oxygen requirement, was actually breathing through his mouth an d when ambulated on room air he was 94%. I transitioned to Augmentin and Zithromax. He has tolerate d this well in the past. He is discharged home. He is also provided a prescription for Tessalon Per chan. ADDENDUM: He and his were given instructions to follow up with worsening fever, chills, cough, confusion. /[id number]/MODL
[2019-01-24 11:12] VITALS: BP 110/73
[2019-01-24] MEDS ORDERED: AZITHROMYCIN IV 500 MG in NS 250 ML IV SCH (19:30)
[2019-01-24] MEDS ORDERED: REVLIMID 10 MG PO SCH (21:00)
--- NOTE | 2019-01-25 07:55 | CPEKG ---
Test Reason : OPEN Blood Pressure : / mmHG Vent. Rate : 078 BPM Atrial Rate : 078 BPM P-R Int : 172 ms QRS Dur : 116 ms QT Int : 425 ms P-R-T Axes : 054 025 038 degrees QTc Int : 485 ms Sinus rhythm Incomplete right bundle branch block Inferior infarct, old Confirmed by Zoltan Mendiola ([id number]) on 01/25/2019 7:55:09 AM Referred By: Zoltan Mendiola Confirmed By:Zoltan Mendiola
== END 2019-01-24 11:20 | disposition still patient (30) ==
LOC: UNDOADMOB 18:48
DX: R09.02 Hypoxemia (principal); J44.1 Chronic obstructive pulmonary disease with (acute) exacerbation; I48.91 Unspecified atrial fibrillation; E86.9 Volume depletion, unspecified; Z79.01 Long term (current) use of anticoagulants; I10 Essential (primary) hypertension
CPT/HCPCS: 84484-ER; 96365; J0456; J0696

== ENCOUNTER 2019-02-02 13:56 | Observation (INO) | payer OTHER ==
--- NOTE | 2019-02-02 14:18 | EDPHY ---
HPI/HX/ROS/PE/MDM Narrative: CHIEF COMPLAINT: Low energy, hypotension, chest tightness HISTORY OF PRESENT ILLNESS: The patient is an anticoagulated (Xarelto) 64 y/o male with a history of multiple myeloma, atrial fibrillation, and DVTs complaining of decreased energy, hypotension, and some chest tightness. He was admitted 01/23 for pneumonia and treated with overnight IV antibiotics and at home Augmentin and azithromycin. He has completed his treatment for pneumonia. He reports that initially he began to feel better but that over the past few days, his energy level has decreased, his blood pressure decreases when sitting or standing, and he has felt some chest tightness with deep breathing. He reports associated difficulty sleeping and redness, warmth, and pain just below the left knee. He denies syncope, vomiting, nausea, or any other associated symptoms. He denies history of hypertension, stents, or other cardiac conditions. He denies any recent changes in chemotherapy or anticoagulants. Denies recurrent fever, or chills, no significant chest pain, does feel shortness of breath, no palpitations, vomiting, urinary complaints, or headache. REVIEW OF SYSTEMS: A comprehensive 10 system review of systems is otherwise negative aside from elements mentioned in the history of present illness and medical decision making PAST MEDICAL HISTORY: Multiple myeloma treated with stem cell transplant 2 years ago, atrial fibrillation, DVTs, chronic diarrhea, bilateral knee replacement with infection and second replacement in the right knee SOCIAL HISTORY: at bedside, lives in [employer], non-smoker VITAL SIGNS: Reviewed by me GENERAL: Well-developed, well-nourished, resting comfortably in no respiratory distress. HEENT: Atraumatic. Eyes: No icterus, no injection. Mouth: moist mucous membranes. No erythema or lesions. Neck: supple with no adenopathy. LUNGS: Clear to auscultation bilaterally, no wheezes, rhonchi or rales. CARDIAC: Regularly irregular rate and rhythm, no rubs, murmurs or gallops. Hypotensive to 85/53 when standing. ABDOMEN: Obese, soft, nontender, nondistended, bowel sounds normal. BACK: No CVA tenderness. EXTREMITIES: Left knee is mildly erythematic with tenderness to palpation, especially over patella and patellar tendon. No effusion, minimal warmth. Good range of motion with minimal pain. NEURO: Alert and oriented, grossly nonfocal. SKIN: Warm and dry, no rash. PSYCHIATRIC: Normal mentation, no agitation. ED Course: 12-LEAD EKG: Please see the full report in [facility]. My interpretation: Atrial fibrillation Study: X-ray of the chest Indication: Chest tightness, hypotension Results: X-ray of the chest was obtained. The results of the study are: resolving pneumonia The study was read by the radiologist, Dr. Cuellar. I viewed the images myself on the PACS system. The patient presents with low energy, hypotension when standing, and chest tightness. He recently completed antibiotics for pneumonia. He initially felt better but over the last few days he has felt tired, weak, and is hypotensive. He notes some redness and pain in his left knee. He becomes hypotensive to 80s/ 50s when standing. Plan for EKG, chest x-ray, CBC, basic metabolic panel, coagulation panel, BNP, lactic acid, and blood cultures. 14:30 - EKG shows atrial fibrillation. 14:50 - Chest x-ray shows resolving pneumonia. Plan for admission for atrial fibrillation. Ortho will evaluate the knee while he is in patient. Dr. Garica will be the admitting physician. The patient agrees to this course of action. Dr Saldaña contacted from Ortho and will evaluate for possibility of cellulitis, joint infection in knee. Troponin neg. Labs o/w reassuring except for lactic acid of 2.3. Do NOT feel this represents severe sepsis and would NOT administer 4,000 liters of normal saline to meet the 30cc/kg bolus. Patient at time of this presentation does not meet criteria for sepsis; Patient presented to the Emergency Department with a possible infection ( resolving pneumonia? cellulitis?) but did not met criteria for sepsis. He was tachycardic (due to afib with RVR) but had no temperature, increased RR rate or elevated WBC. MDM: Diff dx considered included but not limited to pneumonia, atrial fibrillation with RVR, cardiac ischemia, electrolyte abnormalities, cellulitis. - Data Points Imaging Results: Imaging Impressions Chest X-Ray 02/02/19 14:04 Impression: Moderate underlying bronchitis with possible early infiltrate or atelectasis at both lung bases, left greater than right. Imaging: I viewed and interpreted images myself Laboratory Results: Laboratory Results 02/02/19 14:20 02/02/19 14:20 02/02/19 02/02/19 02/02/19 14:26 14:20 14:20 WBC RBC Hgb Hct MCV MCH MCHC RDW Plt Count MPV Neut % (Auto) Lymph % (Auto) [place] % (Auto) Eos % (Auto) Baso % (Auto) Nucleat RBC Rel Count Absolute Neuts (auto) Absolute Lymphs (auto) Absolute Monos (auto) Absolute Eos (auto) Absolute Basos (auto) Absolute Nucleated RBC Immature Gran % Immature Gran # PT INR APTT VBG Lactic Acid Sodium Potassium Chloride Carbon Dioxide Anion Gap BUN Creatinine Estimated GFR Glucose Calcium Total Bilirubin POC Troponin I 0.01 ng/mL ng/mL (0.00-0.08) C-Reactive Protein 10.0 mg/L mg/L (<10.0) NT-Pro-B Natriuret Pep 2240 pg/mL H pg/mL (0-125) 02/02/19 02/02/19 02/02/19 14:20 14:20 14:20 WBC 5.43 10^3/uL 10^3/uL (3.80-9.50) RBC 4.52 10^6/uL 10^6/uL (4.40-6.38) Hgb 14.2 g/dL g/dL (13.7-17.5) Hct 42.9 % % (40.0-51.0) MCV 94.9 fL fL (81.5-99.8) MCH 31.4 pg pg (27.9-34.1) MCHC 33.1 g/dL g/dL (32.4-36.7) RDW 14.6 % % (11.5-15.2) Plt Count 243 10^3/uL 10^3/uL (150-400) MPV 8.9 fL fL (8.7-11.7) Neut % (Auto) 54.0 % % (39.3-74.2) Lymph % (Auto) 31.5 % % (15.0-45.0) [place] % (Auto) 11.8 % % (4.5-13.0) Eos % (Auto) 1.5 % % (0.6-7.6) Baso % (Auto) 0.6 % % (0.3-1.7) Nucleat RBC Rel Count 0.0 % % (0.0-0.2) Absolute Neuts (auto) 2.94 10^3/uL 10^3/uL (1.70-6.50) Absolute Lymphs (auto) 1.71 10^3/uL 10^3/uL (1.00-3.00) Absolute Monos (auto) 0.64 10^3/uL 10^3/uL (0.30-0.80) Absolute Eos (auto) 0.08 10^3/uL 10^3/uL (0.03-0.40) Absolute Basos (auto) 0.03 10^3/uL 10^3/uL (0.02-0.10) Absolute Nucleated RBC 0.00 10^3/uL 10^3/uL (0-0.01) Immature Gran % 0.6 % % (0.0-1.1) Immature Gran # 0.03 10^3/uL 10^3/uL (0.00-0.10) PT 12.7 SEC SEC (12.0-15.0) INR 0.99 (0.83-1.16) APTT 27.0 SEC SEC (23.0-38.0) VBG Lactic Acid Sodium 140 mEq/L mEq/L (135-145) Potassium 3.7 mEq/L mEq/L (3.5-5.2) Chloride 110 mEq/L mEq/L (97-110) Carbon Dioxide 24 mEq/l mEq/l (22-31) Anion Gap 6 mEq/L mEq/L (6-14) BUN 20 mg/dL mg/dL (7-23) Creatinine 0.9 mg/dL mg/dL (0.7-1.3) Estimated GFR > 60 Glucose 94 mg/dL mg/dL (70-100) Calcium 9.3 mg/dL mg/dL (8.5-10.4) Total Bilirubin 0.5 mg/dL mg/dL (0.1-1.4) POC Troponin I C-Reactive Protein NT-Pro-B Natriuret Pep 02/02/19 14:20 WBC RBC Hgb Hct MCV MCH MCHC RDW Plt Count MPV Neut % (Auto) Lymph % (Auto) [place] % (Auto) Eos % (Auto) Baso % (Auto) Nucleat RBC Rel Count Absolute Neuts (auto) Absolute Lymphs (auto) Absolute Monos (auto) Absolute Eos (auto) Absolute Basos (auto) Absolute Nucleated RBC Immature Gran % Immature Gran # PT INR APTT VBG Lactic Acid 2.3 mmol/L H mmol/L (0.7-2.1) Sodium Potassium Chloride Carbon Dioxide Anion Gap BUN Creatinine Estimated GFR Glucose Calcium Total Bilirubin POC Troponin I C-Reactive Protein NT-Pro-B Natriuret Pep Medications Given: Discontinued Medications Sodium Chloride (Ns) 1,000 mls @ 0 mls/hr IV ONCE ONE; Wide Open PRN Reason: Protocol Stop: 02/02/19 14:31 Last Admin: 02/02/19 14:54 Dose: 1,000 mls Point of Care Test Results: Chemistry 02/02/19 14:26 POC Troponin I 0.01 ng/mL ng/mL (0.00-0.08) General Time Seen by Provider: 02/02/19 14:01 Initial Vital Signs: Initial Vital Signs Temperature (C) 36.4 C 02/02/19 13:57 Heart Rate 65 02/02/19 13:57 Respiratory Rate 16 02/02/19 13:57 Blood Pressure 152/106 H 02/02/19 13:57 O2 Sat (%) 98 02/02/19 13:57 O2 Delivery Mode Room Air Allergies/Adverse Reactions: No Known Allergies Allergy (Verified 02/14/15 09:51) Home Medications: Medication Instructions Recorded Potassium Cl [Klor-Con 20 meq (*)] 20 meq PO HS 05/19/16 Revlimid 10 mg PO HS 08/06/17 Rivaroxaban [Xarelto] 20 mg PO HS 08/06/17 Acyclovir [Zovirax 400 mg (*)] 400 mg PO BID 01/23/19 Benzonatate [Tessalon Pearles] 200 mg PO TID PRN #60 cap 01/24/19 Departure - Departure Disposition: [facility] Acute Clinical Impression: Weakness, Cellulitis of knee Hypotension Qualifiers: Hypotension type: orthostatic hypotension Qualified Code(s): I95.1 - Orthostatic hypotension Atrial fibrillation Qualifiers: Atrial fibrillation type: unspecified Qualified Code(s): I48.91 - Unspecified atrial fibrillation Condition: Fair Report Scribed for: Shannon Dorsey Report Scribed by: Carissa Orozco Date of Report: 02/02/19 Time of Report: 14:35 Physician Review and Approval Statement: Portions of this note were transcribed by a medical aides teacher. I personally performed a history, physical exam, medical decision making, and confirmed accuracy of information the transcribed note.
[2019-02-02] MEDS ORDERED: NS 1,000 ML IV ONE (14:30)
[2019-02-02 14:35] LABS: PLATELET COUNT 243 10^3/uL (150-400)
[2019-02-02 15:08] LABS: INR 0.99 (0.83-1.16); PROTIME(PATIENT) 12.7 SEC (12.0-15.0)
--- NOTE | 2019-02-02 15:40 | PDGENHP ---
History and Physical - Chief Complaint Weakness - History of Present Illness Darin Angela is a 64-year-old male with past medical history of multiple myeloma on Revlimid, DVT, CVA, a flutter status post DCCV x2, and recent admission for pneumonia who presented with 2 days of increased weakness. He says starting about 2 days ago he has been feeling more weak. He says that since he was diagnosed with multiple myeloma he has had some issues with feeling faint upon standing. This seems to come and go but about 2 days ago he has been feeling more weak and like his heart is racing when he stands up. He feels like his upper respiratory infection has been resolving. He completed the antibiotic course he was prescribed on discharge from the hospital January 24 and does feel like he has improved from that. He said that he has been generally weak and "he did not feel right". He has noticed that his heart has been fluttering on and off for the last couple of days as well. He also said that he was stretching about 2 days ago and thought maybe he pulled his left knee and has been a little bit more achy since that time as well. His left leg is chronically more swollen than his right leg secondary to a DVT in the past and this has not changed. He denied any other symptoms including fever, chills , cough, orthopnea, nausea vomiting, chest pain or other symptoms. History Information - Allergies/Home Medication List Allergies/Adverse Reactions: No Known Allergies Allergy (Verified 02/14/15 09:51) Home Medications: Potassium Cl [Klor-Con 20 meq (*)] 20 meq PO HS 05/19/16 [Last Taken 02/01/19] Revlimid 10 mg PO HS 08/06/17 [Last Taken 01/30/19] Rivaroxaban [Xarelto] 20 mg PO HS 08/06/17 [Last Taken 02/01/19] Acyclovir [Zovirax 400 mg (*)] 400 mg PO BID 01/23/19 [Last Taken 02/02/19] I have personally reviewed and updated: family history, medical history, social history, surgical history - Past Medical History CVA, DVT (March of 2017, right popliteal, tibial, peroneal, left popliteal) Additional medical history: [place] chain IgG multiple myeloma (diagnosed 02/2015) with stem cell transplant in 2015, atrial flutter s/p DCCV, DVT, CKD, GI bleed, GERD, chronic pain now off narcotics, FERNANDO no longer on CPAP, HTN, remote C diff colitis, CVA with no residual deficits, diastolic dysfunction, goiter - Surgical History Additional surgical history: knee surgery, thyroid surgery - Family History Positive for: non-pertinent Additional family history: No recent sick family contacts, father with myocardial infarction in his 70s, mother with breast cancer - Social History Smoking Status: Never smoked Additional social history: Lives with Review of Systems Review of Systems: ROS: 10pt was reviewed & negative except for what was stated in HPI & below Physical Exam Physical Exam: Temp Pulse Resp BP Pulse Ox 36.7 C 108 H 18 105/75 95 02/02/19 15:24 02/02/19 15:24 02/02/19 15:24 02/02/19 15:24 02/02/19 15:24 Constitutional: no apparent distress, appears nourished, not in pain Eyes: PERRL, anicteric sclera, EOMI Ears, Nose, Mouth, Throat: moist mucous membranes, hearing normal, ears appear normal, no oral mucosal ulcers Cardiovascular: irregularly irregular, No edema (Trace pitting edema in his lower extremities, left greater than right) Respiratory: no respiratory distress, no rales or rhonchi, clear to auscultation Gastrointestinal: normoactive bowel sounds, soft, non-tender abdomen, no palpable masses Genitourinary: no bladder fullness, no bladder tenderness Skin: warm, normal color, no rashes or abrasions, no fluctuance, no induration, No mottled Musculoskeletal: full muscle strength, other (Very mild erythema and swelling of the left patella.) Neurologic: AAOx3 Psychiatric: interacting appropriately, not anxious, not encephalopathic, thought process linear Lymph, Heme, Immunologic: no cervical LAD, no supraclavicular LAD Lab Data & Imaging Review 02/02/19 14:20 02/02/19 14:20 WBC 5.43 10^3/uL (3.80-9.50) 02/02/19 14:20 RBC 4.52 10^6/uL (4.40-6.38) 02/02/19 14:20 Hgb 14.2 g/dL (13.7-17.5) 02/02/19 14:20 Hct 42.9 % (40.0-51.0) 02/02/19 14:20 MCV 94.9 fL (81.5-99.8) 02/02/19 14:20 MCH 31.4 pg (27.9-34.1) 02/02/19 14:20 MCHC 33.1 g/dL (32.4-36.7) 02/02/19 14:20 RDW 14.6 % (11.5-15.2) 02/02/19 14:20 Plt Count 243 10^3/uL (150-400) 02/02/19 14:20 MPV 8.9 fL (8.7-11.7) 02/02/19 14:20 Neut % (Auto) 54.0 % (39.3-74.2) 02/02/19 14:20 Lymph % (Auto) 31.5 % (15.0-45.0) 02/02/19 14:20 [place] % (Auto) 11.8 % (4.5-13.0) 02/02/19 14:20 Eos % (Auto) 1.5 % (0.6-7.6) 02/02/19 14:20 Baso % (Auto) 0.6 % (0.3-1.7) 02/02/19 14:20 Nucleat RBC Rel Count 0.0 % (0.0-0.2) 02/02/19 14:20 Absolute Neuts (auto) 2.94 10^3/uL (1.70-6.50) 02/02/19 14:20 Absolute Lymphs (auto) 1.71 10^3/uL (1.00-3.00) 02/02/19 14:20 Absolute Monos (auto) 0.64 10^3/uL (0.30-0.80) 02/02/19 14:20 Absolute Eos (auto) 0.08 10^3/uL (0.03-0.40) 02/02/19 14:20 Absolute Basos (auto) 0.03 10^3/uL (0.02-0.10) 02/02/19 14:20 Absolute Nucleated RBC 0.00 10^3/uL (0-0.01) 02/02/19 14:20 Immature Gran % 0.6 % (0.0-1.1) 02/02/19 14:20 Immature Gran # 0.03 10^3/uL (0.00-0.10) 02/02/19 14:20 PT 12.7 SEC (12.0-15.0) 02/02/19 14:20 INR 0.99 (0.83-1.16) 02/02/19 14:20 APTT 27.0 SEC (23.0-38.0) 02/02/19 14:20 VBG Lactic Acid 2.3 mmol/L (0.7-2.1) H 02/02/19 14:20 Sodium 140 mEq/L (135-145) 02/02/19 14:20 Potassium 3.7 mEq/L (3.5-5.2) 02/02/19 14:20 Chloride 110 mEq/L (97-110) 02/02/19 14:20 Carbon Dioxide 24 mEq/l (22-31) 02/02/19 14:20 Anion Gap 6 mEq/L (6-14) 02/02/19 14:20 BUN 20 mg/dL (7-23) 02/02/19 14:20 Creatinine 0.9 mg/dL (0.7-1.3) 02/02/19 14:20 Estimated GFR > 60 02/02/19 14:20 Glucose 94 mg/dL (70-100) 02/02/19 14:20 Calcium 9.3 mg/dL (8.5-10.4) 02/02/19 14:20 Total Bilirubin 0.5 mg/dL (0.1-1.4) 02/02/19 14:20 POC Troponin I 0.01 ng/mL (0.00-0.08) 02/02/19 14:26 NT-Pro-B Natriuret Pep 2240 pg/mL (0-125) H 02/02/19 14:20 Assessment & Plan Assessment: 64-year-old male with multiple myeloma on Revlimid, recently admitted for pneumonia, returns for generalized weakness and noted to be in AFib. Orthostatic hypotension- patient says he has had a problem with orthostasis since his diagnosis of multiple myeloma. Says he has been eating and drinking well. He is notably orthostatic, but his labs all are within normal limits. This could be related to the recurrence of his atrial fibrillation which was noted on EKG. His heart rate jumped to 130 upon standing. I reviewed his chest x-ray which in my opinion looks about the same as it did on January 23. -continue fluid resuscitation -recheck orthostatic blood pressure after fluids -monitor on telemetry -rule out infection or other cause Atrial fibrillation-I reviewed the EKG from today which is showing atrial fibrillation with rates in the 90s. He has a history of atrial flutter requiring cardioversion twice. He was cardioverted once in May of 2015 by Chuyita Traore here and then again in September of 2015 at [facility] in [place]. He says he has had no recurrence since that time. He has noticed a fluttering in his chest for the last 2 days. -monitor on telemetry -echo in the morning -cardiology consulted -if persistent AFib with RVR will try diltiazem bolus Left knee pain- he has bilateral knee replacements. He has chronic left lower extremity edema secondary to DVT. There Is very mild erythema on examination and no white count. I discussed the case with the emergency room physician and she has opted to contact Orthopedic surgery for evaluation to ensure no septic bursitis -check CRP -await Ortho's opinion History of DVT/CVA- on Xarelto 20 at bedtime for history of DVT and CVA. Continue with this for now Multiple myeloma- on Revlimid. He cycles 21 days on, 7 days off. He is currently on an "off" cycle. He follows with from [facility]. Prophylaxis- continue Xarelto Fluids- intravenous saline Electrolytes-within normal limits Nutrition-regular diet Cor-full Dispo-ups for orthostatic hypotension and recurrent AFib, and possible knee infection
[2019-02-02] MEDS ORDERED: ACETAMINOPHEN 325 MG TAB PO PRN (15:45)
[2019-02-02] MEDS ORDERED: ONDANSETRON 4 MG/2 ML VIAL IVP PRN (15:45)
[2019-02-02] MEDS ORDERED: ONDANSETRON DISINTEGRATING 4 MG TAB PO PRN (15:45)
[2019-02-02] MEDS: NS 1,000 ML IV SCH (17:35)
[2019-02-02] MEDS: RIVAROXABAN 20 MG TAB PO SCH (21:01)
[2019-02-02] MEDS: ACYCLOVIR 400 MG TAB PO SCH (21:12)
[2019-02-02] MEDS ORDERED: LOPERAMIDE HCL 2 MG CAP PO ONE (21:15)
[2019-02-02] MEDS: POTASSIUM CL 20 MEQ TAB PO SCH (21:39)
[2019-02-03] MEDS: oxyCODONE IR 5 MG TAB PO PRN ×2 (01:37→23:20)
[2019-02-03] MEDS: NS 1,000 ML IV SCH (03:15)
[2019-02-03 03:56] LABS: PLATELET COUNT 211 10^3/uL (150-400)
[2019-02-03] MEDS ORDERED: fentaNYL 100 MCG/2 ML INJ IVP ONE (06:00)
--- NOTE | 2019-02-03 08:26 | HOSPPROG ---
Hospitalist Progress Note Assessment/Plan: 64yo M w/MM, h/o aflutter s/p remote cardioversion, recent pneumonia here with weakness and dizziness found to be orthostatic and in afib. He has missed 2-3 days of xarelto therapy. #Atrial fibrillation: Rates controlled at rest. He does appear symptomatic with this. [id number]. - Trial metoprolol 12.5mg now - Continue xarelto - If HR controlled with above and symptomatically improved, can likely discharge later today. If HR elevated, may need to stay for SABRINA guided DCCV tomorrow #Orthostasis: Chronic issue, likely related to velcade therapy in past. Previously been on fludrocortisone and midodrine with no benefit. - He is not interested in re-trying above therapies - Will order PT and OT. #Left knee pain: Not c/w infection. Dr Saldaña of ortho eval'd, no surgical mgmt. #Diastolic dysfunction: Appears euvolemic. BNP elevated. - Will stop IVF. #H/o recurrent DVT: In setting of cancer, revlimid. Anticoagulation as above. #Multiple myeloma: Currently off-cycle with revlimid. Follow[facility] by [facility]. #H/o CVA: No residual deficits. #FERNANDO not on CPAP #HTN: Not on meds, orthostatic as above. VTE ppx: therapeutic anticoagulation Code: full Dispo: See above. Will keep under obs. Subjective: Feeling slightly better after some fluids. Still with fatigue that has gotten much worse 2-3 days ago when he noticed palpitations. He has not been taking his xarelto everyday. Objective: Vital Signs Temp Pulse Resp BP Pulse Ox 36.9 C 97 14 135/67 H 97 02/03/19 08:00 02/03/19 08:00 02/03/19 08:00 02/03/19 08:00 02/03/19 08:00 Laboratory Results 02/03/19 03:20 02/03/19 03:20 02/02/19 02/03/19 02/04/19 05:59 05:59 05:59 Intake Total 2700 Balance 2700 PT 12.7 SEC (12.0-15.0) 02/02/19 14:20 INR 0.99 (0.83-1.16) 02/02/19 14:20 - Physical Exam Constitutional: no apparent distress, obese Eyes: PERRL, anicteric sclera Ears, Nose, Mouth, Throat: moist mucous membranes, hearing normal, ears appear normal, no oral mucosal ulcers Cardiovascular: no murmur, rub, or gallop, irregularly irregular, edema (LLE ( chronic)) Respiratory: no respiratory distress, no rales or rhonchi, clear to auscultation Gastrointestinal: normoactive bowel sounds, soft, non-tender abdomen, no palpable masses Genitourinary: no bladder fullness, no bladder tenderness, no renal bruits Skin: other (chronic venous stasis changes in BLE) Musculoskeletal: full muscle strength Neurologic: AAOx3 Psychiatric: interacting appropriately ICD10 Worksheet Patient Problems: Problems Problem Status Onset Atrial fibrillation Acute Cellulitis of knee Acute Hypotension Acute Weakness Acute Acute respiratory failure Acute C. difficile diarrhea Acute 04/05/16 COPD exacerbation Acute Dehydration Acute Fever Acute Hypokalemia Acute Hypoxia Acute Pneumonia Acute Sepsis Acute
[2019-02-03] MEDS: ACYCLOVIR 400 MG TAB PO SCH ×2 (08:43→21:24)
[2019-02-03] MEDS ORDERED: ENOXAPARIN 40 MG/0.4 ML SYR SC SCH (09:00)
--- NOTE | 2019-02-03 10:02 | PDCARCONS ---
Cardiology Consult Reason for Consult: Atrial fibrillation Chief Complaint: Heart racing and mild weakness Requesting Physician: Hospitalist team History of Present Illness: Patient is a 64 y/o male with history of atrial fibrillation/flutter s/p two cardioversions in past with intermittent use of Xarelto and [id number] score of 4, DVT history (secondary to "chemo" for multiple myeloma), GERD, FERNANDO without regular use of CPAP, CKD (creatinine today was 0.9), HTN, multiple myeloma (on Revlimid for [place] chair IgG MM, diagnosed in 2014 with failed stem cell transplant in 2016), and multiple CVAs who presented to [facility] with complaints of awareness of elevated heart rates with associated malaise and weakness. No cardiovascular complaints of chest pains or pressure. No PND or othopnea has been noted. Recent diagnosis of CAP with completed treatment on oral antibiotics. Patient feels that he is mostly over this diagnosis. About three days prior, the patient began to have more awareness of weakness and accelerated heart rates. Patient is feeling better today, but continues to appreciated accelerated heart rates with limited ambulation. While sitting, the patient heart rate has been controlled (<100 bpm). No fevers or chills have been noted. Chronic venous stasis changes to BLE noted. Patient unfortunately ate a breakfast today (about 10 am). Remainder of a 12 point review of systems was unremarkable. History Information - Allergies/Home Medication List Allergies/Adverse Reactions: No Known Allergies Allergy (Verified 02/14/15 09:51) Home Medications: Potassium Cl [Klor-Con 20 meq (*)] 20 meq PO HS 05/19/16 [Last Taken 02/01/19] Revlimid 10 mg PO HS 08/06/17 [Last Taken 01/30/19] Rivaroxaban [Xarelto] 20 mg PO HS 08/06/17 [Last Taken 02/01/19] Acyclovir [Zovirax 400 mg (*)] 400 mg PO BID 01/23/19 [Last Taken 02/02/19] I have personally reviewed and updated: family history, medical history, social history, surgical history Past Medical History: - Past Medical History atrial fibrillation, CVA, DVT, GERD, hypertension Additional medical history: multiple myeloma, FERNANDO - Surgical History Reports: no pertinent surgical hx - Family History Positive for: non-pertinent - Social History Smoking Status: Never smoked Alcohol Use: None Drug Use: None Cardiac History - Cardiac History Cardiac Risk Factors: hypertension (>140/90), male Timing/Duration: Days Severity: moderate Severity Scale: 5 Location: central Activities at Onset: activity Modifying Factors: improves with: movement (worse), rest (better) Associated Symptoms: malaise, shortness of breath, weakness Age in Years: < 65 Sex: Male Congestive Heart Failure History: Yes Hypertension History: Yes Stroke/TIA/Thromboembolism History: Yes Vascular Disease History: No Diabetes Mellitus: No [id number] Score: 4 Physical Exam Physical Exam: Temp Pulse Resp BP Pulse Ox 36.9 C 97 14 135/67 H 97 02/03/19 08:00 02/03/19 08:00 02/03/19 08:00 02/03/19 08:00 02/03/19 08:00 Constitutional: no apparent distress, appears nourished, not in pain, obese Eyes: PERRL, EOMI Ears, Nose, Mouth, Throat: moist mucous membranes, hearing normal, ears appear normal Cardiovascular: irregularly irregular, pulses symmetric bilaterally, No JVD, No edema Peripheral Pulses: 2+: dorsalis-pedis (R), dorsalis-pedis (L) Respiratory: no respiratory distress, no rales or rhonchi, clear to auscultation Gastrointestinal: normoactive bowel sounds Skin: warm, other (bilateral LE chronic venous stasis changes) Musculoskeletal: full muscle strength, no muscle tenderness, normal joint ROM Neurologic: AAOx3, CN II-XII Intact Psychiatric: interacting appropriately, not anxious, not encephalopathic Lab and Imaging 02/03/19 03:20 02/03/19 03:20 WBC 5.67 10^3/uL (3.80-9.50) 02/03/19 03:20 RBC 4.22 10^6/uL (4.40-6.38) L 02/03/19 03:20 Hgb 13.1 g/dL (13.7-17.5) L 02/03/19 03:20 Hct 41.2 % (40.0-51.0) 02/03/19 03:20 MCV 97.6 fL (81.5-99.8) 02/03/19 03:20 MCH 31.0 pg (27.9-34.1) 02/03/19 03:20 MCHC 31.8 g/dL (32.4-36.7) L 02/03/19 03:20 RDW 14.6 % (11.5-15.2) 02/03/19 03:20 Plt Count 211 10^3/uL (150-400) 02/03/19 03:20 MPV 8.9 fL (8.7-11.7) 02/03/19 03:20 Neut % (Auto) 53.3 % (39.3-74.2) 02/03/19 03:20 Lymph % (Auto) 33.7 % (15.0-45.0) 02/03/19 03:20 [place] % (Auto) 10.6 % (4.5-13.0) 02/03/19 03:20 Eos % (Auto) 1.4 % (0.6-7.6) 02/03/19 03:20 Baso % (Auto) 0.5 % (0.3-1.7) 02/03/19 03:20 Nucleat RBC Rel Count 0.0 % (0.0-0.2) 02/03/19 03:20 Absolute Neuts (auto) 3.02 10^3/uL (1.70-6.50) 02/03/19 03:20 Absolute Lymphs (auto) 1.91 10^3/uL (1.00-3.00) 02/03/19 03:20 Absolute Monos (auto) 0.60 10^3/uL (0.30-0.80) 02/03/19 03:20 Absolute Eos (auto) 0.08 10^3/uL (0.03-0.40) 02/03/19 03:20 Absolute Basos (auto) 0.03 10^3/uL (0.02-0.10) 02/03/19 03:20 Absolute Nucleated RBC 0.00 10^3/uL (0-0.01) 02/03/19 03:20 Immature Gran % 0.5 % (0.0-1.1) 02/03/19 03:20 Immature Gran # 0.03 10^3/uL (0.00-0.10) 02/03/19 03:20 ESR 11 MM/HR (0-20) 02/02/19 14:20 PT 12.7 SEC (12.0-15.0) 02/02/19 14:20 INR 0.99 (0.83-1.16) 02/02/19 14:20 APTT 27.0 SEC (23.0-38.0) 02/02/19 14:20 VBG Lactic Acid 1.6 mmol/L (0.7-2.1) 02/02/19 18:40 Sodium 138 mEq/L (135-145) 02/03/19 03:20 Potassium 3.9 mEq/L (3.5-5.2) 02/03/19 03:20 Chloride 114 mEq/L (97-110) H 02/03/19 03:20 Carbon Dioxide 20 mEq/l (22-31) L 02/03/19 03:20 Anion Gap 4 mEq/L (6-14) L 02/03/19 03:20 BUN 17 mg/dL (7-23) 02/03/19 03:20 Creatinine 0.9 mg/dL (0.7-1.3) 02/03/19 03:20 Estimated GFR > 60 02/03/19 03:20 Glucose 79 mg/dL (70-100) 02/03/19 03:20 Calcium 8.4 mg/dL (8.5-10.4) L 02/03/19 03:20 Phosphorus 3.3 mg/dL (2.5-4.5) 02/03/19 03:20 Magnesium 1.7 mg/dL (1.6-2.3) 02/03/19 03:20 Total Bilirubin 0.4 mg/dL (0.1-1.4) 02/03/19 03:20 AST 19 IU/L (17-59) 02/03/19 03:20 ALT 40 IU/L (21-72) 02/03/19 03:20 Alkaline Phosphatase 54 IU/L (38-126) 02/03/19 03:20 POC Troponin I 0.01 ng/mL (0.00-0.08) 02/02/19 14:26 C-Reactive Protein 10.0 mg/L (<10.0) 02/02/19 14:20 NT-Pro-B Natriuret Pep 2240 pg/mL (0-125) H 02/02/19 14:20 Total Protein 5.7 g/dL (6.3-8.2) L 02/03/19 03:20 Albumin 2.9 g/dL (3.5-5.0) L 02/03/19 03:20 Visualized and Interpreted Chest x-ray results: Yes Chest X-ray Interpretation: infiltrate, other (bronchitis ) EKG additional interpertation: atrial fibrillation with controlled ventricular response Telemetry: atrial fibrillation A/P Assessment: Patient is a 64y/o male with history of atrial fib/flutter s/p cardioversions in the past, seen by [facility] (Dr. Tayla Traore) in 2017 with further history of HTN, GERD, CVA (reportedly), Multiple myeloma, FERNANDO, and CKD, with admission for rapid heart rate and weakness. Tele/ECG with atrial fibrillation noted. Inconsistent use of anticoagulation (Xarelto) with about 2-3 days without therapy. Rates are relatively controlled with sitting, and reportedly elevate with ambulation. Patient ate moderate size breakfast late this morning. Plan: (1) Xarelto to continue, without interruption given DVT, CVA, and current atrial fibrillation (2) Trial on low dose metoprolol (12.5 mg PO QHS) to assist with some degree of rate control assistance (3) Would recommend revisitation of CPAP therapy with FERNANDO history (and the noted atrial fibrillation) (4) [facility] to set up outpatient SABRINA (needed with a break in Xarelto therapy) and possible cardioversion in the coming 1-[address] Tayla Traore - no outpatient follow up is required, unless there are changes in symptoms appreciated
[2019-02-03] MEDS ORDERED: METOPROLOL TARTRATE 25 MG TAB PO ONE (10:21)
--- NOTE | 2019-02-03 11:15 | ASMTCMCOM ---
CM Note CM Note Notes: Pts case discussed in tx rounds. Pt is a 64 y/o man admitted for weakness, fatigue, hypotension, new afib and knee cellulitis. Therapies have been ordered and awaiting recommendations. Needs are TBD at this time. CM available for changes. Plan: TBD Date Signed: 02/03/2019 11:12 AM Electronically Signed By:JOI Hayes
[2019-02-03] MEDS ORDERED: LOPERAMIDE HCL 2 MG CAP PO PRN (11:42)
--- NOTE | 2019-02-03 13:41 | GCON ---
[f rep st] CONSULTATION ORTHOPEDIC CONSULTATION DATE OF CONSULTATION: 02/02/2019 CHIEF COMPLAINT: Left knee soreness. HISTORY OF PRESENT ILLNESS: A 64-year-old male with multiple medical problems, including multiple my eloma, history of chronic left lower extremity DVT, CVA, atrial flutter, and a recent admission for p neumonia last week, who presents to the emergency department with increased weakness and fatigue, whi ch began approximately 2 days ago. He feels as though his respiratory infection has been resolving. However, his heart is racing and irregular upon standing. In regard to the patient's left knee, the patient states that he was stretching approximately or Sunday at the end of last week. He did not have anything acute or noticeable at that time, but states that his knee has been sore since that time. He is able to move and ambulate on his knee without any significant pain. He denies feve rs and chills since this event. He has a history of a left total knee in 2009 by Deandre Boss in [facility] er. The right side was done in 2010, which also subsequently required revision knee surgery for infe ction. He has noticed very subtle redness over the anterior aspect of the knee. It is mildly tender to touch in the anterior aspect. Denies any increased or significant calf or leg pain. He does hav e chronic neuropathy and venous stasis. REVIEW OF SYSTEMS: A 10-point review of systems is negative except for in HPI. MEDICATIONS: Include potassium, Revlimid, Xarelto, and acyclovir. ALLERGIES: He has no known drug allergies. PAST MEDICAL HISTORY: Includes multiple myeloma status post stem cell transplant in 2016, atrial flu tter, chronic DVT, chronic kidney disease, GI bleed, GERD, FERNANDO, however, not requiring CPAP; hyperten diann, remote C difficile colitis, CVA with no residual effects, diastolic heart dysfunction, and goit er. PAST SURGICAL HISTORY: Bilateral knee arthroplasties and thyroid surgery. FAMILY HISTORY: Noncontributory. SOCIAL HISTORY: He denies alcohol, tobacco, or drug use. PHYSICAL EXAM: GENERAL: He is awake, alert, and oriented. No acute distress. No significant pain. Easy nonlabored breathing. Sitting on the edge of the bed. He does present with morbid obesity. EXTREMITIES: His left lower extremity shows extremely subtle erythema over the anterior inferior asp ect of the knee. He has no pain with active and passive range of motion from 0 to 115 degrees. He i s stable to varus and valgus stress at 0 and 30 degrees. He has 5/5 strength and an intact extensor mechanism. He is mildly tender to palpation over the inferior pole of the patella at the proximal at tachment of the patellar tendon. He has no pain in his calf. His compartments are soft and compress ible. He has sensation intact to light touch in L4 to S1. Motor intact to EHL, FHL, tibialis anteri or, and gastrocsoleus. Palpable, but faint DP and PT pulses. LABORATORY DATA: He has normal white count, ESR, and CRP. He is afebrile, but does have irregular t achycardia. IMAGING: X-rays of the left knee show a well-placed left total knee arthroplasty. ASSESSMENT/PLAN: A 64-year-old male with a short duration of mild soreness in his left knee. He als o states this has resolved since its onset 3 days ago. Clinically, radiographically, and laboratory mejia, there is very little concern for infection. I would continue close observation. No immediate need for aspiration of the knee. Once his medical probable problems have stabilized, I would recomme nd followup with his treating surgeon in [place]. The patient and his understand, and agree with this treatment plan. All questions were answered. /[id number]/MODL
--- NOTE | 2019-02-03 16:17 | ECHO ---
[email or web address] [address] [address] Main: [phone] Echocardiography Examination Transthoracic Name: HUGO MYERS MR#: [id number] Study Date: 02/03/2019 Study Time: 10:14 AM Date of : 1955 Age: 64 year(s) Height: 203.2 cm (80 in.) Weight: 161.03 kg (355 lb.) BSA: 2.93 m2 Gender: Male Examination: Echo Contrast: Image Quality: Adequate Rhythm: Heart Rate: BP: 135 mmHg/67 mmHg Indication: weakness, a fib elevated BNP Procedure Staff Referring Physician: Sofa Back Upholsterer: Emmie Noel RD Reading Physician: Karthikeyan Lerner MD Requesting Provider: Ordering Physician: Jose Phan Indication: weakness, a fib elevated BNP Measurements Chambers AV/MV Label Value Normal Value Label Value Normal Value IVSd, 2D 1.2 cm (0.6cm - 1.1cm) AV PGmax 11 mmHg LVDd, 2D 5.4 cm (4.2cm - 5.9cm) AV PGmean 8 mmHg LVDs, 2D 3.4 cm (2.1cm - 4cm) AV Vmax 1.66 m/s LVOT PGmean 2 mmHg COLE (VTI) 1.5 cm2 LVOT Vmean 0.69 m/s MV DT 254 ms LVOTd 1.9 cm (1.9cm - 2.1cm) MV E Vmax 0.66 m/s LVPWd, 2D 1.2 cm (0.6cm - 1cm) MV PHT 0.08 s RVDd, 2D 3.9 cm (1.9cm - 3.8cm) MV PHT 83 ms LA Volume, BP 105 ml (18ml - 58ml) MVA PHT 2.7 cm2 LADs, 2D 4.7 cm (3cm - 4cm) TV/PV LAESV index, BP 35.8 ml/m2 Label Value Normal Value RA Area 25.2 cm2 RA Pressure 5 mmHg Additional Vessels RVSP 36 mmHg Label Value Normal Value TR Pmax 31 mmHg AoAsc 3.8 cm TR Vmax 2.78 m/s AoRoot, 2D 3.3 cm (1.4cm - 2.6cm) PV PGmax 3 mmHg IVC 1.3 cm (1.2cm - 2.3cm) PV Vmax, Caliper 0.86 m/s (0.6m/s - 0.9m/s) Patient: HUGO MYERS Study Date: 02/03/2019 Page 1 of 3 10:14 AM Conclusions Left Ventricle: Left ventricle is normal in size. The EF is visually estimated to be 55 %. There is mild concentric left ventricular hypertrophy. There are no regional wall motion abnormalities. Left Atrium: The left atrium is mildly dilated. Right Atrium: The right atrium is mildly dilated. Mitral Valve: Trivial mitral regurgitation. Aortic Valve: Mild aortic regurgitation is present. Tricuspid Valve: Right Ventricular systolic pressure is measured at 36 mmHg. Pericardium: Trivial pericardial effusion. Overall Conclusions: Compared to echo of 01/30/2017, today's echo is unchanged. Findings Technically difficult due to body habitus. Left Ventricle: Left ventricle is normal in size. Normal global systolic left ventricular function. The EF is visually estimated to be 55 %. There is mild concentric left ventricular hypertrophy. There are no regional wall motion abnormalities. Right Ventricle: Upper normal size right ventricle. Right ventricular systolic function is normal. Left Atrium: The left atrium is mildly dilated. Right Atrium: The right atrium is mildly dilated. Mitral Valve: Mitral valve appears structurally normal. Trivial mitral regurgitation. No mitral valve stenosis. Aortic Valve: Aortic leaflets are structurally normal. Mild aortic regurgitation is present. There is no aortic stenosis. There is aortic sclerosis present. Tricuspid Valve: Tricuspid valve leaflets are structurally normal. No tricuspid valve stenosis. Right Ventricular systolic pressure is measured at 36 mmHg. Pulmonary artery pressure slightly increased. Pulmonic Valve: Pulmonic valve not well visualized. Trivial pulmonic valve regurgitation is present. Aorta: The aortic root size in 2D measures 3.3 cm. The ascending aorta measures 3.8 cm. Aorta Measurements AoRoot, 2D is 3.3 cm. IVC: Patient: HUGO MYERS Study Date: 02/03/2019 Page 2 of 3 10:14 AM The inferior vena cava is normal in size. Pericardium: Trivial pericardial effusion. Exam Details Procedure Ordered: Echo Procedure Status: Routine study Image Quality: Adequate Facility Location: Cardiac Echo 1 (No Signature Object) Patient: HUGO MYERS Study Date: 02/03/2019 Page 3 of 3 10:14 AM [id number]
[2019-02-03] MEDS ORDERED: NS 1,000 ML IV ONE (16:31)
--- NOTE | 2019-02-03 16:35 | SOAPPROG ---
SOAP Progress Note Assessment/Plan: Assessment: Heme/Onc f/u note - Multiple myeloma - s/p complicated autologous bone marrow transplant currently RADHA on maintenance revlimid. His transplant was complicated my multiple infectious complications. He currently has chronic diarrhea and orthostatic hypotension that are transplant related. He is due to restart Revlimid on 06 FEB 2019. - Hx of DVT - he is chronically anticoagulated with Xarelto due to increased risk of thrombosis from Revlimid and because of risk associated with Afib. He had been off xarelto by his own choice for a few days prior to admission. - Afib - cardiology input appreciated. I impressed upon him the need to stay on anticoagulation. Cardioversion is being considered, but Darin is not sure he will agree to procedure. He would like to discuss it with Dr. Traore as an outpatient. Plan: - Afib rx per cardiology/hospitalist service - continue Xarelto - resume Revlimid 10mg/day days 1-21 q 28 days on 06 FEB 2019 Subjective: fatigued and dyspneic when heart rate goes up. Objective: Vital Signs Temp Pulse Resp BP Pulse Ox 36.4 C 102 H 14 122/80 H 97 02/03/19 11:12 02/03/19 11:21 02/03/19 11:12 02/03/19 11:21 02/03/19 11:12 Laboratory Results 02/03/19 03:20 02/03/19 03:20 02/01/19 02/02/19 02/03/19 23:59 23:59 23:59 Intake Total 1150 3400 Balance 1150 3400 PT 12.7 SEC (12.0-15.0) 02/02/19 14:20 INR 0.99 (0.83-1.16) 02/02/19 14:20 Physical Exam - Physical Exam General Appearance: alert, no apparent distress Neuro/Psych: normal mood/affect, oriented x 3 ICD10 Worksheet Patient Problems: Problems Problem Status Onset Atrial fibrillation Acute Cellulitis of knee Acute Hypotension Acute Weakness Acute Acute respiratory failure Acute C. difficile diarrhea Acute 04/05/16 COPD exacerbation Acute Dehydration Acute Fever Acute Hypokalemia Acute Hypoxia Acute Pneumonia Acute Sepsis Acute
[2019-02-03] MEDS ORDERED: METOPROLOL TARTRATE 25 MG TAB PO SCH (21:00)
[2019-02-03] MEDS: RIVAROXABAN 20 MG TAB PO SCH (21:24)
[2019-02-03] MEDS: POTASSIUM CL 20 MEQ TAB PO SCH (21:26)
[2019-02-04 04:19] LABS: INR 1.97 (0.83-1.16); PROTIME(PATIENT) 21.5 SEC (12.0-15.0)
[2019-02-04] MEDS ORDERED: MIDAZOLAM 2 MG/2 ML VIAL IVP ONE (06:00)
[2019-02-04] MEDS ORDERED: ATROPINE SULFATE 1 MG/10 ML SYR IVP ONE (06:00)
[2019-02-04] MEDS ORDERED: NS 1,000 ML IV ONE (06:00)
[2019-02-04] MEDS ORDERED: fentaNYL 100 MCG/2 ML INJ IVP ONE (06:00)
[2019-02-04] MEDS ORDERED: NS 500 ML IV ONE (06:00)
--- NOTE | 2019-02-04 08:22 | PDANEPAE ---
ANE History of Present Illness SABRINA CV ANE Past Medical History - Cardiovascular History Hx Hypertension: Yes Hx Arrhythmias: Yes Hx Chest Pain: No Hx Coronary Artery / Peripheral Vascular Disease: No Hx CHF / Valvular Disease: No Hx Palpitations: Yes - Pulmonary History Hx COPD: No Hx Recent Upper Respiratory Infection: Yes Hx Oxygen in Use at Home: No Hx Sleep Apnea: Yes - Endocrine History Hx Diabetes: No Hypothyroid: No Hyperthyroid: No Obesity: moderate - Chronic Pain History Chronic Pain: Yes ANE Review of Systems Review of Systems: - Exercise capacity METS (RN): 3 METS ANE Patient History - Allergies Allergies/Adverse Reactions: No Known Allergies Allergy (Verified 02/14/15 09:51) - Home Medications Home Medications: Potassium Cl [Klor-Con 20 meq (*)] 20 meq PO HS 05/19/16 [Last Taken 02/01/19] Revlimid 10 mg PO HS 08/06/17 [Last Taken 01/30/19] Rivaroxaban [Xarelto] 20 mg PO HS 08/06/17 [Last Taken 02/01/19] Acyclovir [Zovirax 400 mg (*)] 400 mg PO BID 01/23/19 [Last Taken 02/02/19] - NPO status NPO Status: no food or drink >8 hours - Anes Hx Anes Hx: no prior problems - Smoking Hx Smoking Status: Never smoked - Alcohol Use Alcohol Use: None ANE Labs/Vital Signs - Labs Result Diagrams: 02/03/19 03:20 02/04/19 03:15 - Vital Signs Blood Pressure: 96/78 Heart Rate: 118 Respiratory Rate: 20 O2 Sat (%): 99 Height: 203.2 cm Weight: 161 kg ANE Physical Exam - Airway Neck exam: increased neck circumference Mallampati Score: Class 2 Mouth exam: normal dental/mouth exam - Cardiovascular Cardiovascular: irregularly irregular - ASA Status ASA Status: III ANE Anesthesia Plan Anesthesia Plan: general endotracheal anesthesia Total IV Anesthesia: Yes
[2019-02-04] MEDS ORDERED: PROPOFOL 200 MG/20 ML VIAL ONE (08:28)
--- NOTE | 2019-02-04 08:52 | PDCARPN ---
Cardiology Progress Note Chief Complaint: No cardiovascular complaints this morning. Fair sleep Assessment/Plan: Assessment: 02-04-19 No events overnight. Given ongoing elevated heart rates with minimal activity or motion, we opted to keep the patient overnight. Trial with low dose beta blockers for some attempt at rate control (minimal success). Patient was NPO after midnight last night. No cardiovascular complaints of chest pains or pressure. No PND or orthopnea. Patient continued to have awareness of accelerated heart rates. Ongoing use of Xarelto while in house. 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 No cardiovascular complaints of chest pains or pressure. No PND or othopnea has been noted. Recent diagnosis of CAP with completed treatment on oral antibiotics. Patient feels that he is mostly over this diagnosis. About three days prior, the patient began to have more awareness of weakness and accelerated heart rates. Patient is feeling better today, but continues to appreciated accelerated heart rates with limited ambulation. While sitting, the patient heart rate has been controlled (<100 bpm). No fevers or chills have been noted. Chronic venous stasis changes to BLE noted. Plan: (1) Continue Xarelto (likely for life) given DVT as well as reports of CVA with pAF history (2) Maintain follow up with Heme/Onc for history of multiple myeloma (3) Further recommendations after SABRINA with possible cardioversion Subjective: No cardiovascular complaints this morning Reviewed/Discussed With: hospitalist Objective: Vital Signs (8 Hrs) Temp Pulse Resp BP Pulse Ox 02/04/19 08:23 118 H 20 96/78 L 99 02/04/19 07:35 36.6 C 118 H 20 96/78 L 99 02/04/19 03:50 36.3 C 96 20 106/67 94 Intake/Output (24 Hrs) 02/03/19 02/04/19 02/05/19 05:59 05:59 05:59 Intake Total 2700 2800 Output Total 400 Balance 2700 2400 Intake: Oral (ml) 450 2800 IV Intake (ml) 0 IV Infused (ml) 2250 Ns 1,000 ml @ 100 mls/hr 1250 IV CONT WALTER Rx#: [id number] Output: Urine (ml) 400 Urinal 400 Other: Weight 162.4 kg 161 kg Number of Voids 1 Toilet 2 5 Number of Stools Toilet 1 Result Diagrams: 02/03/19 03:20 02/04/19 03:15 Telemetry: atrial fibrillation with rates of about 100 bpm Echocardiogram: Normal LVEF, mild biatrial dilation, trace/mild MR was noted. Normal aortic valve - Physical Exam Constitutional: WDWN, healthy appearing, no apparent distress, obese Eyes: PERRL, EOMI Ears, Nose, Mouth, Throat: moist mucous membranes Cardiovascular: irregularly irregular, pulses symmetric bilat, No jugular vein distention Peripheral Pulses: 2+: dorsalis-pedis (R), dorsalis-pedis (L) Respiratory: clear to auscultate bilat, no crackles, no wheezes Gastrointestinal: normoactive bowel sounds Skin: no edema, other (BLE venous stasis changes) Musculoskeletal: no muscular tenderness Neurologic: AAOx3, CN II-XII grossly intact Psychiatric: cooperative, interactive, following commands ICD10 Worksheet Patient Problems: Problems Problem Status Onset Atrial fibrillation Acute Cellulitis of knee Acute Hypotension Acute Weakness Acute Acute respiratory failure Acute C. difficile diarrhea Acute 04/05/16 COPD exacerbation Acute Dehydration Acute Fever Acute Hypokalemia Acute Hypoxia Acute Pneumonia Acute Sepsis Acute
--- NOTE | 2019-02-04 08:57 | PDTEE1 ---
SABRINA Cardioversion Procedure Procedure: electrical cardioversion, transesophageal echo Indications: atrial fibrillation Consent: signed and in chart Anticoagulation: xarelto Procedural Details: After consents for anesthesia, SABRINA, and possible cardioversion were signed and placed in the chart, the patient was placed in the left lateral position to facilitate ease of SABRINA probe placement. Vitals (including heart rate, blood pressure, pulse oximetry, and respiratory rate) were monitored real time. Sedation was induced by anesthesia, and SABRINA probe was placed without difficulty. Preliminary report: (1) Normal LVEF (55%) (2) Borderline biatrial dilation (3) Mild MR (4) Trileaflet aortic valve without sclerosis or insufficiency (5) Mild TR (6) Grossly normal pulmonic valve (7) Bubble contrast injection without right to left passage (8) Smoke to both atria were noted (9) No thrombus to the JUSTIN was noted (10) No atheroma to the transverse or descending aorta Given a lack of thrombus, we proceeded with cardioversion Synchronized cardioversion attempt #1: 200J Results: normal sinus rhythm Conclusions: successful SABRINA cardioversion Conclusion Comment: Would maintain therapy on Xarelto - likely for life given the risk factors and history noted. Would have patient follow up with [facility] in one week (Dr. Tayla Traore). Patient Problems: Problems Problem Status Onset Atrial fibrillation Acute Cellulitis of knee Acute Hypotension Acute Weakness Acute Acute respiratory failure Acute C. difficile diarrhea Acute 04/05/16 COPD exacerbation Acute Dehydration Acute Fever Acute Hypokalemia Acute Hypoxia Acute Pneumonia Acute Sepsis Acute
[2019-02-04] MEDS: ACYCLOVIR 400 MG TAB PO SCH (10:11)
[2019-02-04 12:22] VITALS: BP 97/60
--- NOTE | 2019-02-04 13:27 | SOAPPROG ---
SOAP Progress Note Assessment/Plan: Assessment: Heme/Onc f/u note - Multiple myeloma - s/p complicated autologous bone marrow transplant currently RADHA on maintenance revlimid. His transplant was complicated my multiple infectious complications. He currently has chronic diarrhea and orthostatic hypotension that are transplant related. He is due to restart Revlimid on 06 FEB 2019. - Hx of DVT - he is chronically anticoagulated with Xarelto due to increased risk of thrombosis from Revlimid and because of risk associated with Afib. He had been off xarelto by his own choice for a few days prior to admission. - Afib - SABRINA and cardioversion today. Now in NSR. Probable d/c to home today Plan: - f/u with me as scheduled in about 3 weeks. - continue Xarelto - resume Revlimid 10mg/day days 1-21 q 28 days on 06 FEB 2019 Subjective: Feels MUCH better s/p cardioversion Objective: Vital Signs Temp Pulse Resp BP Pulse Ox 36.4 C 72 20 97/60 L 94 02/04/19 12:00 02/04/19 12:00 02/04/19 12:00 02/04/19 12:00 02/04/19 12:00 Laboratory Results 02/03/19 03:20 02/04/19 03:15 02/02/19 02/03/19 02/04/19 23:59 23:59 23:59 Intake Total 1150 3950 950 Output Total 400 Balance 1150 3550 950 PT 21.5 SEC (12.0-15.0) H 02/04/19 03:15 INR 1.97 (0.83-1.16) H 02/04/19 03:15 Physical Exam - Physical Exam General Appearance: alert, no apparent distress Neuro/Psych: normal mood/affect, oriented x 3 ICD10 Worksheet Patient Problems: Problems Problem Status Onset Atrial fibrillation Acute Cellulitis of knee Acute Hypotension Acute Weakness Acute Acute respiratory failure Acute C. difficile diarrhea Acute 04/05/16 COPD exacerbation Acute Dehydration Acute Fever Acute Hypokalemia Acute Hypoxia Acute Pneumonia Acute Sepsis Acute
--- NOTE | 2019-02-04 13:51 | ECHO ---
[email or web address] [address] [address] Main: [phone] Echocardiography Examination Transesophageal Name: HUGO MYERS MR#: [id number] Study Date: 02/04/2019 Study Time: 08:09 AM Date of : 1955 Age: 64 year(s) Height: 203.2 cm (80 in.) Weight: 162.39 kg (358 lb.) BSA: 2.95 m2 Gender: Male Examination: SABRINA Contrast: Image Quality: Rhythm: Heart Rate: BP: 104 mmHg/72 mmHg Indication: Atrial Fibrillation Procedure Staff Referring Physician: Individual Small Group Instructor: Taylor Saini [facility] Reading Physician: Alvin Mckinney MD Requesting Provider: Ordering Physician: Alvin Mckinney MD Indication: Atrial Fibrillation Measurements Chambers Label Value Normal Value EF lower range (%) 55 % Conclusions (1) Normal LVEF (2) Mild bilateral dilation was noted - spontaneous contrast was noted to both atria - bubble contrast injection without right to left passage noted (3) Mild MR (4) Trileaflet aortic valve without sclerosis, stenosis, or insufficiency (5) Mild TR (6) Grossly normal pulmonic valve (7) No thrombus to the JUSTIN Proceed with cardioversion Findings Left Atrium: Spontaneous contrast in the left atrium. Patient: HUGO MYERS Study Date: 02/04/2019 Page 1 of 2 08:09 AM Left Atrium Appendage: No thrombus is identified. IAS: An agitated saline study was performed and was negative for intracardiac shunting. Mitral Valve: Mitral valve appears structurally normal. Mild mitral regurgitation. Aortic Valve: No aortic valve regurgitation. The aortic valve is trileaflet. Tricuspid Valve: Tricuspid valve leaflets are structurally normal. Mild tricuspid regurgitation. Pulmonic Valve: Pulmonic leaflets are structurally normal. No pulmonic valve regurgitation is evident. Exam Details Procedure Ordered: SABRINA (No Signature Object) Patient: HUGO MYERS Study Date: 02/04/2019 Page 2 of 2 08:09 AM [id number]
--- NOTE | 2019-02-04 14:15 | PDDCSUM ---
Discharge Summary Discharge Summary: Date of Admission: 02/02/2019 Date of Discharge: 02/04/2019 Consultants: cardiology, oncology, orthopedic surgery Procedures: SABRINA-guided DCCV Studies: TTE, left knee x-ray Discharge Diagnoses: 1. Symptomatic atrial fibrillation with RVR 2. Recent community acquired pneumonia s/p antibiotics 3. Multiple myeloma 4. Chronic orthostasis 5. H/o recurrent DVT 6. H/o CVA with no residual deficits 7. FERNANDO with mild pulmonary hypertension, non-adherent with CPAP Brief Hospital Course: 64yo M with multiple myeloma, h/o aflutter s/p remote cardioversion (2014), recently treated for community acquired pneumonia presented with 2-3 days of weakness and dizziness found to be in atrial fibrillation. His rates were only modestly elevated at rest (90-100s) but did increase to 140s with exertion. An echocardiogram was unchanged from 2017. He had missed several doses of his xarelto (he thought he only needed to take while on revlimid); thus, he underwent SABRINA-guided electrical cardioversion that was successful. He was monitored for several hours after the procedure and remained in sinus rhythm. His symptoms also drastically improved with conversion to sinus rhythm. He was strongly encouraged to not take any breaks with xarelto, especially in the setting of numerous indications for anticoagulation (afib ([id number]=2), h/o CVA, h/o recurrent DVT, revlimid therapy). He was started on metoprolol as well. Of note, he does have chronic orthostasis. This is thought related to his prior cancer treatment (velcade). He has been tried on fludrocortisone and midodrine without much benefit and he was not interested in trying these again. He did have some left knee discomfort on admission. Orthopedic surgery was consulted in the ED but there were no signs of active infection. Medications: Please refer to EMR for complete list. New medications include metoprolol 12.5mg QHS. Otherwise no changes. Follow Up Plan: 1. Appointment with Chuyita Traore (cardiology) in 7-10 days 2. Continue to address FERNANDO (he is non-adherent to CPAP) 3. Resume revlimid on 02/06/2019. Follow up with Dr Shelton in 3 weeks Physical Exam: Vitals reviewed, normotensive. Alert and oriented, no focal neuro deficits, rrr without murmur, lungs clear, abdomen soft, chronic venous stasis changes of BLE, no jvd.
--- NOTE | 2019-02-04 14:37 | ASMTLACE ---
LACE Length of stay for Answers: 3 days current admission Acuity / Level of Answers: Yes Care: Did the patient have an inpatient admission? Comorbidities - select Answers: Cerebrovascular disease all that apply (CVA, TIA, aneurysms, vasc ular dementia) Mild liver or renal disease Opioid dependence / Chronic pain Other Notes: AFib; DVT # of Emergency department Answers: 1-2 visits in the last 6 months Score: 15 Date Signed: 02/04/2019 02:34 PM Electronically Signed By:JOI Hayes
--- NOTE | 2019-02-04 14:40 | ASMTCMCOM ---
CM Note CM Note Notes: Pts case discussed in tx rounds. Pt does not have any d/c needs. Pt is independent. CM available for changes. Date Signed: 02/04/2019 02:39 PM Electronically Signed By:JOI Hayes
--- NOTE | 2019-02-05 09:00 | CPEKG ---
Test Reason : OPEN Blood Pressure : / mmHG Vent. Rate : 073 BPM Atrial Rate : 073 BPM P-R Int : 170 ms QRS Dur : 115 ms QT Int : 399 ms P-R-T Axes : 050 009 008 degrees QTc Int : 440 ms Sinus rhythm Incomplete right bundle branch block Inferior infarct, old Confirmed by Miko Hamilton ([id number]) on 02/05/2019 9:00:08 AM Referred By: Charli Rojo Confirmed By:Miko Hamilton
--- NOTE | 2019-02-08 12:48 | CPEKG ---
Test Reason : OPEN Blood Pressure : / mmHG Vent. Rate : 090 BPM Atrial Rate : 151 BPM P-R Int : 160 ms QRS Dur : 106 ms QT Int : 355 ms P-R-T Axes : 000 -18 029 degrees QTc Int : 435 ms Atrial fibrillation Borderline left axis deviation Abnormal R-wave progression, early transition Confirmed by Shannon Dorsey ([id number]) on 02/08/2019 12:48:05 PM Referred By: Shannon Dorsey Confirmed By:Shannon Dorsey
== END 2019-02-04 14:35 | disposition home or self-care (01) ==
LOC: F2W 16:37
PROVIDERS: ADMIT Internal Medicine; ATTEND Internal Medicine
DX: I48.91 Unspecified atrial fibrillation (principal); I48.92 Unspecified atrial flutter; C90.00 Multiple myeloma not having achieved remission; G47.33 Obstructive sleep apnea (adult) (pediatric); I27.20 Pulmonary hypertension, unspecified; I95.1 Orthostatic hypotension; E86.0 Dehydration; Z87.01 Personal history of pneumonia (recurrent); Z86.718 Personal history of other venous thrombosis and embolism; Z86.73 Personal history of transient ischemic attack (TIA), and cerebral infarction without residual deficits; Z96.653 Presence of artificial knee joint, bilateral
CPT/HCPCS: 71046; 73562; 92960; 93005; 93306; 93312; 96360; 97161; 97165; 97530; 97535; 99285; G0378; 84484-ER; J1650; J2704